=== PATIENT | female | born 1950 | race Caucasian/White ===

== ENCOUNTER → 2017-03-13 | Outpatient (CLI) | payer OTHER ==
[~2017-03-13] MED LIST: ALIVE VITAMIN PO; AMITRIPTYLINE H10 M3 PO; ATORVASTATIN CA40 MG PO; CALCIUM 600 +1 EACH PO; CALICUM 500+D1 EACH PO; CELEBREX100 MG/1 C PO; CELEXA40 MG PO; CIPRO250 MG PO; CLARITIN10 MG PO; COLACE100 MG PO; COUMADIN 2 MG TA2 M1 PO; COUMADIN 5 MG TA5 M1 PO; COUMADIN7.5 MG PO; CYMBALTA30 MG PO; CYMBALTA60 MG PO; DOMPERIDONE PO; ENOXAPARIN40 MG/0.1 SUBQ; ERYTHROMYCIN250 MG PO; FLEXERIL PO; HCTZ PO; HYDROCHLOROTHIA25 M1 PO; HYDROCHLOROTHIA25 M2 PO; HYDROCODON-ACE1 EAC7 PO; HYDROCODONE-AP1 EA15 PO; HYDROCODONE-AP1 EAC6 PO; LEVOTHYROXIN0.125 M1 PO; LEVOTHYROXIN0.137 M1 PO; LISINOPRIL10 MG PO; LISINOPRIL20 MG PO; MOM PO; MULTIVITAMIN W1 EACH PO; NEURONTIN 300300 M1 PO; NEURONTIN600 MG PO; NORCO 5-325 TA1 EACH PO; OCUVITE TABLET1 EAC1 PO; PAXIL 20 MG TAB20 M1 PO; PERCOCET PO; PHENERGAN25 MG RE; POTASSIUM20 PO; PREDNISONE 20 M20 MG PO; PRILOSEC 20 MG20 MG PO; PRILOSEC40 MG PO; PRINZIDE 20-251 EACH PO; PROTONIX40 M1 PO; PROZAC20 MG PO; RECLAST 55 MG/100 M IV; REQUIP 1 MG TABL1 M1 PO; REQUIP2 MG PO; ROBAXIN 750 MG750 M1 PO; ROPINIROLE HCL2 M1 PO; ROXICODONE5 MG PO; SIMETHICON CHEW80 M1 PO; SYNTHROID125 MCG PO; SYNTHROID150 MCG PO; VAGIFEM25 MCG VG; VIACTIV MULTI-1 EACH PO; VICODIN 5-5001 EACH PO; VITAMIN D2000 UNIT PO; WELLBUTRIN XL150 MG PO; ZANTAC 150MG T150 MG PO; ZOCOR 20 MG TAB20 MG PO; ZOFRAN ODT4 MG PO; ZOFRAN4 MG PO
[2017-03-13 13:37] LABS: ABSOLUTE BASOPHILS 0.1 thou/uL (0.0-0.2); ABSOLUTE EOSINOPHILS 0.1 thou/uL (0.0-0.7); ABSOLUTE LYMPHOCYTES 1.6 thou/uL (0.8-5.3); ABSOLUTE MONOCYTES 0.7 thou/uL (0.0-1.2); BASOPHILS 2.4 %; EOSINOPHILS 1.9 %; HEMATOCRIT 42.5 % (37.0-47.0); HEMOGLOBIN 14.1 gm/dL (12.0-15.0); LYMPHOCYTES 36.2 %; MCH 29.8 pg (26.0-34.0); MCHC 33.1 g/dL (28.0-37.0); MCV 89.9 fL (80.0-100.0); MONOCYTES 15.3 %; MPV 7.3 fl. (7.2-11.1); NUCLEATED RBCS 0 /100WBC; PLATELET COUNT* 280 thou/uL (150-400); POLYS 44.2 %; RBC 4.73 mil/uL (4.20-5.00); RDW-CV 14.7 % (10.5-14.5); WBC 4.5 thou/uL (4.0-11.0)
[2017-03-13 13:45] LABS: ANION GAP 10 mmol/L (7-16); BUN 12 mg/dL (7-18); CALCIUM 9.1 mg/dL (8.5-10.1); CHLORIDE 103 mmol/L (98-107); CO2 29 mmol/L (21-32); CREATININE 1.1 mg/dL (0.6-1.3); GLUCOSE 119 mg/dL (70-99); SODIUM 142 mmol/L (136-145)
[2017-03-13 13:49] LABS: ALBUMIN 3.9 g/dL (3.4-5.0); ALKALINE PHOSPHATASE 83 U/L (46-116); CHOLESTEROL 481 mg/dL (<200); HDL CHOLESTEROL 66 mg/dL (>40); SGOT 46 U/L (15-37); SGPT 43 U/L (30-65); TC:HDL 7.3 Ratio (Not establshd); TOTAL BILIRUBIN 0.2 mg/dL (<0.1-1.0); TOTAL PROTEIN 7.8 g/dL (6.4-8.2); TRIGLYCERIDE 472 mg/dL (<150); VLDL 94 mg/dL (<40)
[2017-03-13 13:50] LABS: LDL CHOLESTEROL ND mg/dL (<100); SERUM ASSESSMENT Slight Lipemia
== END ==
LOC: M.LAB 13:00 → M.CT 13:30
PROVIDERS: Family Medicine
DX: N28.89 Other specified disorders of kidney and ureter (principal); J84.10 Pulmonary fibrosis, unspecified; M43.27 Fusion of spine, lumbosacral region; Z90.49 Acquired absence of other specified parts of digestive tract

== ENCOUNTER 2017-06-02 11:59 | Emergency (ER) | payer OTHER ==
[~2017-06-02] VITALS: Ht 165.1 cm; Wt 72.6 kg
[~2017-06-02 11:59] MED LIST changes: -AMITRIPTYLINE H10 M3 PO; -COUMADIN 2 MG TA2 M1 PO; -PREDNISONE 20 M20 MG PO; -PROZAC20 MG PO; -ROPINIROLE HCL2 M1 PO; -SYNTHROID150 MCG PO; -VITAMIN D2000 UNIT PO; -WELLBUTRIN XL150 MG PO
[2017-06-02 12:26] LABS: URINE BILIRUBIN NEGATIVE (Negative); URINE BLOOD NEGATIVE (Negative); URINE CLARITY CLEAR; URINE COLOR YELLOW; URINE GLUCOSE-RANDOM NEGATIVE (Negative); URINE KETONES NEGATIVE (Negative); URINE LEUKOCYTES-REFLEX NEGATIVE (Negative); URINE NITRITE-REFLEX NEGATIVE (Negative); URINE PROTEIN NEGATIVE (Negative); URINE SPECIFIC GRAVITY <= 1.005 (1.005-1.030); URINE UROBILINOGEN 0.2 E.U./dl (0.2-1.0)
[2017-06-02] MEDS ORDERED: PROZAC20 MG PO (12:32)
[2017-06-02] MEDS ORDERED: LISINOPRIL20 MG PO (12:32)
[2017-06-02] MEDS ORDERED: SYNTHROID150 MCG PO (12:32)
[2017-06-02] MEDS ORDERED: NEURONTIN600 MG PO (12:33)
[2017-06-02] MEDS ORDERED: COUMADIN 5 MG TA5 M1 PO (12:33)
[2017-06-02] MEDS ORDERED: COUMADIN 2 MG TA2 M1 PO (12:33)
[2017-06-02] MEDS ORDERED: VITAMIN D2000 UNIT PO (12:34)
[2017-06-02] MEDS ORDERED: REQUIP2 MG PO (12:34)
[2017-06-02 13:19] LABS: ABSOLUTE BASOPHILS 0.1 thou/uL (0.0-0.2); ABSOLUTE EOSINOPHILS 0.2 thou/uL (0.0-0.7); ABSOLUTE LYMPHOCYTES 1.6 thou/uL (0.8-5.3); ABSOLUTE MONOCYTES 0.7 thou/uL (0.0-1.2); ABSOLUTE NEUTROPHILS 4.1 thou/uL (1.6-8.1); EOSINOPHILS 2.5 %; HEMATOCRIT 40.1 % (37.0-47.0); HEMOGLOBIN 13.4 gm/dL (12.0-15.0); LYMPHOCYTES 23.8 %; MCH 30.3 pg (26.0-34.0); MCHC 33.4 g/dL (28.0-37.0); MCV 90.6 fL (80.0-100.0); MPV 7.6 fl. (7.2-11.1); NUCLEATED RBCS 0 /100WBC; PLATELET COUNT* 284 thou/uL (150-400); POLYS 61.7 %; RBC 4.42 mil/uL (4.20-5.00); RDW-CV 14.5 % (10.5-14.5); WBC 6.7 thou/uL (4.0-11.0)
[2017-06-02 13:26] LABS: CALCIUM 8.8 mg/dL (8.5-10.1); CREATININE 0.8 mg/dL (0.6-1.3); POTASSIUM 4.2 mmol/L (3.5-5.1)
[2017-06-02 13:31] LABS: ALBUMIN 3.6 g/dL (3.4-5.0); TOTAL BILIRUBIN 0.1 mg/dL (<0.1-1.0)
[2017-06-02] MEDS ORDERED: PERCOCET PO (15:19)
[2017-06-02 16:12] VITALS: BP 122/80
== END 2017-06-02 16:20 | disposition home or self-care (01) ==
LOC: M.ERS 11:59
PROVIDERS: Physician Assistant
DX: M54.5 Low back pain (principal); M54.6 Pain in thoracic spine; R10.12 Left upper quadrant pain; I10 Essential (primary) hypertension; G25.81 Restless legs syndrome; E03.9 Hypothyroidism, unspecified; K21.9 Gastro-esophageal reflux disease without esophagitis; G89.29 Other chronic pain; F17.200 Nicotine dependence, unspecified, uncomplicated; Z86.711 Personal history of pulmonary embolism; Z90.49 Acquired absence of other specified parts of digestive tract; Z90.710 Acquired absence of both cervix and uterus; Z96.653 Presence of artificial knee joint, bilateral; Z86.718 Personal history of other venous thrombosis and embolism; Z88.0 Allergy status to penicillin

== ENCOUNTER 2017-08-17 15:53 | Inpatient (IN) | payer OTHER ==
[~2017-08-17] VITALS: Ht 182.9 cm; Wt 70.3 kg
[~2017-08-17 15:53] MED LIST changes: +COUMADIN 2 MG TA2 M1 PO; +PROZAC20 MG PO; +SYNTHROID150 MCG PO; +VITAMIN D2000 UNIT PO
[2017-08-17 15:57] VITALS: BP 166/81
[2017-08-17 16:21] LABS: ABSOLUTE BASOPHILS 0.1 thou/uL (0.0-0.2); ABSOLUTE EOSINOPHILS 0.1 thou/uL (0.0-0.7); ABSOLUTE LYMPHOCYTES 1.8 thou/uL (0.8-5.3); ABSOLUTE MONOCYTES 0.7 thou/uL (0.0-1.2); ABSOLUTE NEUTROPHILS 5.5 thou/uL (1.6-8.1); EOSINOPHILS 1.1 %; HEMATOCRIT 42.5 % (37.0-47.0); HEMOGLOBIN 14.2 gm/dL (12.0-15.0); LYMPHOCYTES 22.4 %; MCH 29.9 pg (26.0-34.0); MCHC 33.4 g/dL (28.0-37.0); MCV 89.6 fL (80.0-100.0); MPV 7.7 fl. (7.2-11.1); NUCLEATED RBCS 0 /100WBC; PLATELET COUNT* 336 thou/uL (150-400); POLYS 66.5 %; RBC 4.74 mil/uL (4.20-5.00); WBC 8.2 thou/uL (4.0-11.0)
[2017-08-17 16:26] LABS: INR 1.8; PROTIME 17.3 Seconds (9.20-11.50)
[2017-08-17 16:27] LABS: ANION GAP 11 mmol/L (7-16); BUN 16 mg/dL (7-18); CALCIUM 9.1 mg/dL (8.5-10.1); CHLORIDE 107 mmol/L (98-107); CO2 24 mmol/L (21-32); CREATININE 0.8 mg/dL (0.6-1.3); GLUCOSE 106 mg/dL (70-99); POTASSIUM 3.8 mmol/L (3.5-5.1); SODIUM 142 mmol/L (136-145)
[2017-08-17 16:37] LABS: ALBUMIN 3.9 g/dL (3.4-5.0); ALKALINE PHOSPHATASE 77 U/L (46-116); LIPASE 226 U/L (73-393); MAGNESIUM 2.4 mg/dL (1.8-2.4); NT-PRO BRAIN NAT PEPTIDE 199 pg/mL (<300); SGOT 27 U/L (15-37); SGPT 31 U/L (30-65); TOTAL BILIRUBIN 0.3 mg/dL (<0.1-1.0); TOTAL PROTEIN 7.8 g/dL (6.4-8.2); TROPONIN-I LEVEL <0.06 ng/mL (<0.06)
[2017-08-17 20:20] VITALS: BP 168/87
[2017-08-17 20:30] VITALS: BP 159/68
[2017-08-17] MEDS ORDERED: ROPINIROLE HCL2 M1 PO (22:07)
[2017-08-17] MEDS ORDERED: WELLBUTRIN XL150 MG PO (22:09)
[2017-08-17] MEDS ORDERED: CYMBALTA60 MG PO (22:09)
[2017-08-18] VITALS: BP 150/71
[2017-08-18 04:00] VITALS: BP 119/58
[2017-08-18 04:40] LABS: INR 1.7; PROTIME 16.2 Seconds (9.20-11.50)
[2017-08-18 04:43] LABS: HEMATOCRIT 39.5 % (37.0-47.0); HEMOGLOBIN 13.1 gm/dL (12.0-15.0); MCH 29.9 pg (26.0-34.0); MCHC 33.1 g/dL (28.0-37.0); MCV 90.3 fL (80.0-100.0); MPV 8.2 fl. (7.2-11.1); RBC 4.37 mil/uL (4.20-5.00); RDW-CV 15.2 % (10.5-14.5); WBC 6.9 thou/uL (4.0-11.0)
[2017-08-18 04:58] LABS: ALBUMIN 3.4 g/dL (3.4-5.0); ALKALINE PHOSPHATASE 83 U/L (46-116); ANION GAP 8 mmol/L (7-16); BUN 12 mg/dL (7-18); CALCIUM 8.4 mg/dL (8.5-10.1); CHLORIDE 106 mmol/L (98-107); CO2 27 mmol/L (21-32); CREATININE 0.7 mg/dL (0.6-1.3); GLUCOSE 109 mg/dL (70-99); MAGNESIUM 2.4 mg/dL (1.8-2.4); POTASSIUM 4.3 mmol/L (3.5-5.1); SGOT 167 U/L (15-37); SGPT 133 U/L (30-65); SODIUM 141 mmol/L (136-145); TOTAL BILIRUBIN 0.3 mg/dL (<0.1-1.0); TOTAL PROTEIN 6.5 g/dL (6.4-8.2); TROPONIN-I LEVEL <0.06 ng/mL (<0.06)
[2017-08-18 07:52] VITALS: BP 111/59
[2017-08-18 11:50] VITALS: BP 100/65
--- NOTE | 2017-08-18 12:00 | EKG ---
[place] [address] ELECTROCARDIOGRAM REPORT Name: PEPPER PAIZ Room: [address] IN R.#: [id number] Admission: 08/17/17 Attend Phys: Alicia Daniel MD Discharge: Date of : 48 Report #: [id number] THIS REPORT FOR: //name// [facility] ED Test Date: 2017-08-17 Test Time: 15:58:49 Pat Name: PEPPER PAIZ Department: Room: Gender: F Clay Miner: : 1950 Requested By: Chidi Ulloa Order Number: [id number] MD: Sukhi Alvarez Measurements Intervals [place] Rate: 67 P: 57 GA: 131 QRS: 34 QRSD: 144 T: 67 QT: 454 QTc: 480 Interpretive Statements Sinus rhythm Left bundle branch block Baseline wander in lead(s) III Compared to ECG 10/10/2013 14:36:33 No significant changes Electronically Signed On 08-18-2017 12:00:23 CDT by Sukhi Alvarez [email or web address] <ELECTRONICALLY SIGNED> By: Sukhi Alvarez MD, FAC 08/18/17 Formerly [facility] 1558 1558 Sukhi Alvarez MD, [facility] /EPI
--- NOTE | 2017-08-18 13:07 | 2DMMODE ---
[place] [address] 2 D/M-MODE ECHOCARDIOGRAM Name: PEPPER PAIZ Room: [address] IN .R.#: [id number] Admission: 08/17/17 Attend Phys: Alicia Daniel, Discharge: Date of : 48 Date of Service: 08/18/17 1307 Report #: [id number] THIS REPORT FOR: //name// APPROVED REPORT Study performed: 08/18/2017 09:10:05 EXAM: Comprehensive 2D, Doppler, and color-flow Echocardiogram Patient Location: In-Patient BSA: 1.77 HR: 50 bpm BP: 111/59 mmHg Other Information Study Quality: Fair Indications Chest Pain 2D Dimensions LVEF(%): 37.62 (>50%) IVSd: 12.40 (7-11mm) LVOT Diam: 19.70 (18-24mm) LVDd: 42.28 mm PWd: 11.03 (7-11mm) Ascending Ao: 22.63 (22-36mm) LVDs: 34.69 (25-40mm) Aortic Root: 25.74 mm Taylor's LVEF: 37.62 % Volumes Left Atrial Volume (Systole) LA ESV Index: 21.40 mL/m2 Aortic Valve AoV Peak Andrea.: 1.49 m/s AO Peak Gr.: 8.82 mmHg LVOT Max P.17 mmHg AO Mean Gr.: 4.82 mmHg LVOT Mean P.49 mmHg LVOT Max V: 1.14 m/s AO V2 VTI: 28.97 cm LVOT Mean V: 0.91 m/s MACIEJ (VTI): 2.26 cm2 LVOT V1 VTI: 21.46 cm Mitral Valve E/A Ratio: 0.97 MV Decel. Time: 205.12 ms MV E Max Andrea.: 0.75 m/[place] [address] 2 D/M-MODE ECHOCARDIOGRAM Name: PEPPER PAIZ Room: [address] IN .R.#: [id number] Admission: 08/17/17 Attend Phys: Alicai Daniel, Discharge: Date of : 48 Date of Service: 08/18/17 1307 Report #: [id number] MV PHT: 59.49 ms MVA (PHT): 3.70 cm2 TDI E/Lateral E': 6.82 E/Medial E': 7.50 Medial E' Andrea.: 0.10 m/s Lateral E' Andrea.: 0.11 m/s Pulmonary Valve PV Peak Andrea.: 1.08 m/s PV Peak Gr.: 4.68 mmHg Tricuspid Valve RAP Estimate: 5.00 mmHg TR Peak Gr.: 10.10 mmHg RVSP: 15.10 mmHg PA Pressure: 15.10 mmHg Left Ventricle The left ventricle is normal size. There is global hypokinesis of the left ventricle. Mild concentric left ventricular hypertrophy. Left ventricular systolic function is mildly decreased. LVEF is 40-45%. Right Ventricle The right ventricle is normal size. The right ventricular systolic function is normal. Atria The left atrium size is normal. The right atrium size is normal. Aortic Valve The aortic valve is normal in structure. No aortic regurgitation is present. There is no aortic valvular stenosis. Mitral Valve The mitral valve is normal in structure. Trace mitral regurgitation. No evidence of mitral valve stenosis. Tricuspid Valve The tricuspid valve is normal in structure. Trace tricuspid regurgitation. Pulmonic Valve Pulmonic valve is not well visualized. There is no pulmonic [place] [address] 2 D/M-MODE ECHOCARDIOGRAM Name: PEPPER PAIZ Room: [address] IN [facility]#: [id number] Admission: 08/17/17 Attend Phys: Alicia Daniel, Discharge: Date of : 48 Date of Service: 08/18/17 1307 Report #: [id number] Great Vessels The aortic root is normal in size. IVC is not well visualized. Pericardium There is no pericardial effusion. <Conclusion> LVEF is 40-45%. There is global hypokinesis of the left ventricle. <ELECTRONICALLY SIGNED> By: Sukhi Alvarez MD, [facility] 08/18/17 1307 06 06 Sukhi Alvarez MD, FAC /INF
[2017-08-18 15:07] LABS: HEPATITIS B SURFACE AG Negative (Negative)
[2017-08-18 16:15] VITALS: BP 120/74
[2017-08-18 20:00] VITALS: BP 113/55
[2017-08-19] VITALS: BP 110/60
[2017-08-19 01:22] LABS: HEMATOCRIT 40.7 % (37.0-47.0); HEMOGLOBIN 13.3 gm/dL (12.0-15.0); MCHC 32.7 g/dL (28.0-37.0); MCV 91.9 fL (80.0-100.0); MPV 7.8 fl. (7.2-11.1); RBC 4.43 mil/uL (4.20-5.00); WBC 7.5 thou/uL (4.0-11.0)
[2017-08-19 01:45] LABS: INR 1.5; PROTIME 14.7 Seconds (9.20-11.50)
[2017-08-19 02:00] LABS: ALBUMIN 3.4 g/dL (3.4-5.0); ALKALINE PHOSPHATASE 87 U/L (46-116); ANION GAP 9 mmol/L (7-16); BUN 14 mg/dL (7-18); CALCIUM 8.7 mg/dL (8.5-10.1); CHLORIDE 106 mmol/L (98-107); CO2 28 mmol/L (21-32); GLUCOSE 122 mg/dL (70-99); MAGNESIUM 2.4 mg/dL (1.8-2.4); POTASSIUM 4.2 mmol/L (3.5-5.1); SGOT 66 U/L (15-37); SGPT 110 U/L (30-65); SODIUM 143 mmol/L (136-145); TOTAL BILIRUBIN 0.2 mg/dL (<0.1-1.0); TOTAL PROTEIN 6.9 g/dL (6.4-8.2); TROPONIN-I LEVEL <0.06 ng/mL (<0.06)
[2017-08-19 04:00] VITALS: BP 120/71
[2017-08-19 07:45] VITALS: BP 138/72
[2017-08-19 16:00] VITALS: BP 99/54
[2017-08-19 20:30] VITALS: BP 89/46
[2017-08-19 23:51] VITALS: BP 129/57
[2017-08-20 01:38] LABS: HEMATOCRIT 37.3 % (37.0-47.0); HEMOGLOBIN 12.3 gm/dL (12.0-15.0); MCHC 33.1 g/dL (28.0-37.0); MCV 90.8 fL (80.0-100.0); RBC 4.11 mil/uL (4.20-5.00); RDW-CV 15.4 % (10.5-14.5); WBC 6.7 thou/uL (4.0-11.0)
[2017-08-20 01:42] LABS: INR 1.5; PROTIME 14.1 Seconds (9.20-11.50)
[2017-08-20 02:41] LABS: CREATININE 0.8 mg/dL (0.6-1.3); POTASSIUM 3.8 mmol/L (3.5-5.1)
[2017-08-20 04:30] VITALS: BP 138/74
[2017-08-20 08:30] VITALS: BP 151/70
[2017-08-20 16:00] VITALS: BP 144/66
[2017-08-20 21:00] VITALS: BP 132/57
[2017-08-21 03:49] LABS: INR 1.6; PROTIME 15.2 Seconds (9.20-11.50)
[2017-08-21 08:00] VITALS: BP 145/71
[2017-08-21] MEDS ORDERED: AMITRIPTYLINE H10 M3 PO (08:27)
[2017-08-21] MEDS ORDERED: PREDNISONE 20 M20 MG PO (08:27)
[2017-08-21 14:23] VITALS: BP 145/71
[2017-08-21 14:56] VITALS: BP 145/71
[2017-08-21 16:00] VITALS: BP 150/68
[2017-08-21 17:14] VITALS: BP 145/71
--- NOTE | 2017-08-21 17:42 | CARDNUC ---
[place] [address] CARDIAC NUCLEAR IMAGING REPORT Name: PEPPER PAIZ Room: [address] IN [facility]#: [id number] Admission: 08/17/17 Attend Phys: Alicia Daniel, Discharge: Date of : 48 Date of Service: 08/21/17 1742 Report #: [id number] THIS REPORT FOR: //name// APPROVED REPORT Study performed: 08/19/2017 11:32:00 Indication: Chest pain Patient Location: In-Patient Room #: 113 Stress Tech: Misty Romano Stress Nurse: Kassandra Matthew RN Ht: 5 ft 5 in Wt: 155 lbs BSA: 1.77 m2 BMI: 25.79 Medical History Medical History: CAD s/p [place] Medications: warfarin, lisinopril, asa Allergies: penicillin Cardiac Risk Factors: Age, Current Smoker, HTN Previous Cardiac Procedures: PCI Exercise History: Sedentary Meds Held (24 hrs): - Resting Data Rest SPECT myocardial perfusion imaging was performed in supine position 30 minutes following the intravenous injection of 8.0 mCi of Tc-99m Sestamibi. Time of rest injection: 08:20 The images were gated to evaluate regional wall motion and calculate left ventricular ejection fraction. Administration Route: IV Administration Site: Left AC Pharmacologic Stress Pharmacologic stress test was performed by injecting Regadenoson 0.4 mg IV push over 10-15 seconds immediately followed by the intravenous injection of 28.0 mCi of Tc-99m Sestamibi. Time of stress injection: 11:00 Administration Route: IV Administration Site: Left AC Heart Rate at time of stress injection: 110 bpm. Gated Stress SPECT was performed 40 minutes [place] [address] CARDIAC NUCLEAR IMAGING REPORT Name: PEPPER PAIZ Room: [address] IN [facility].#: [id number] Admission: 08/17/17 Attend Phys: Alicia Daniel, Discharge: Date of : 48 Date of Service: 08/21/17 1742 Report #: [id number] The images were gated to evaluate regional wall motion and calculate left ventricular ejection fraction. Prone imaging was performed. Stress Test Details Stress Test: Pharmacologic stress testing performed using 0.4 mg of regadenoson per 5 mL given IV over 10 seconds. Reason for pharmacologic stress test: physical limitation. HR Resting HR: 62 bpm Max Heart Rate (APMHR): 153 bpm Max HR Achieved: 110 bpm Target HR (85% APMHR): 130 bpm % of APMHR: 71 Recovery HR: 85 bpm BP Resting BP: 149/87 mmHg Max BP: 140/82 mmHg ECG Resting ECG: Sinus Rhythm, LBBB Stress ECG: Sinus Rhythm, LBBB ST Change: None Arrhythmia: None Recovery ECG: Sinus Rhythm, LBBB Recovery ST Change: None Recovery Arrhythmia: None Clinical Reason for Termination: Completed protocol Stress Symptoms: Chest pain Exercise duration: 0 min sec Exercise capacity: 1.0 METs The patient had mild chest discomfort with Lexiscan infusion felt to be medication effect in light of myocardial perfusion imaging findings. Nurse Comments Patient reported chest tightness post lexiscan, rated 8, resolved in recovery. Stress ECG Conclusion Baseline 12-lead elect cardiac exam shows sinus rhythm with left bundle-branch block. EKGs obtained during and post Lexiscan infusion show sinus rhythm with left bundle-branch block. No acute changes were noted. There were no stress[place] [address] CARDIAC NUCLEAR IMAGING REPORT Name: PEPPER PAIZ Room: [address]#: [id number] Admission: 08/17/17 Attend Phys: Alicia Daniel, Discharge: Date of : 48 Date of Service: 08/21/17 1742 Report #: [id number] Study Quality Study: Good Artifact: Mild Breast artifact Study Data At rest, the left ventricular ejection fraction was 53%.. Post stress, the left ventricular ejection was E3%.. TID = 0.89. Perfusion Myocardial perfusion images obtained at rest show a moderate region of mild intensity defect involving the mid to apical anterior wall. No other defects were identified. Myocardial perfusion images obtained post Lexiscan stress show a mid to distal anterior wall defect of moderate intensity that is smaller than resting images. No other defects were identified. Wall Motion There is septal wall motion abnormality of uncertain significance. Of note the anterior wall exhibits normal motion. Nuclear Conclusion ECG Findings: non-diagnostic Clinical Findings: non-diagnostic Nuclear Findings: negative for ischemia Exercise Capacity: not assessed Left Ventricular Function: preserved Risk Study: low Myocardial perfusion images show a defect of the anterior wall on both rest and stress images with normal wall motion suggesting breast attenuation artifact. Overall left ventricular systolic function appears normal. This is not a high risk study. <Conclusion> Baseline 12-lead elect cardiac exam shows sinus rhythm with left bundle-branch block. EKGs obtained during and post Lexiscan infusion show sinus rhythm with left bundle-branch block. No acute changes were noted. There were no stress-induced arrhythmias. <ELECTRONICALLY SIGNED> By: Steve Monzon MD, FACC 08/21/171741 41 41 Steve Monzon MD, FACC /INF
[2017-08-21 18:38] VITALS: BP 145/71
--- NOTE | 2017-08-23 14:13 | CON ---
[address] [address] CONSULTATION Name: PEPPER PAIZ Room: [address] IN ..#: [id number] Admission: 08/17/17 Attend Phys: Alicia Daniel MD Discharge: 08/21/17 Date of : 48 Report #: [id number] THIS REPORT FOR: //name// CC: Lang Daniel DATE OF SERVICE: 08/18/2017 CARDIOLOGY CONSULTATION HISTORY OF PRESENT ILLNESS: The patient is a 66-year-old single white female who I was asked to see in the hospital today after she complained of chest pain. The patient has an extensive past medical history. She apparently had a heart catheterization by Dr. Baptiste years ago here in [place] that showed only 40% blockage in a small artery and she was not stented. She apparently had another heart catheterization while she was in [place] that showed no significant coronary artery disease. She has a known bundle-branch block. She previously was followed by a doctor, ____, who is a header setup operator at [facility] in [place]. She has not had a recent stress test. She actually saw Dr. Echevarria here at [facility] in 2008 complaining of chest pain. Dr. Echevarria felt that her pain was suggestive of angina, so she actually underwent another heart catheterization here at [facility] [address] Munoz from the right groin. She was found to have ejection fraction of 60%. The ostium of the LAD apparently had a 40% stenosis. It was recommended that she be treated medically. She apparently did have FFR performed of the LAD. Since that time, she has had several hospitalizations. Her last hospitalization was shoulder surgery at [facility] in [place] this past year. Recently, she has been under a lot of stress. She actually came to the emergency room in May, complaining of low back pain. She then came to the emergency room yesterday complaining of some chest pain that radiated into her back. It is not necessarily related to activity. She also has some pain in her left shoulder. She has had no appetite with coughing. She has been short of breath. She notes her heart racing and apparently did have a brief loss of conscious recently. She came to the Emergency Room yesterday and was admitted there. PAST MEDICAL HISTORY: Significant for back surgery, bilateral knee replacement, cholecystectomy, hysterectomy, and hypertension. She has a back stimulator in place. She [facility] [place]. MEDICATIONS: Consist of Cymbalta, Neurontin, Synthroid, lisinopril, and warfarin. ALLERGIES: She has allergy to PENICILLIN. She does have history of hypertension, but [place] [address] CONSULTATION Name: PEPPER PAIZ Room: [address] IN ..#: [id number] Admission: 08/17/17 Attend Phys: Alicia Daniel MD Discharge: 08/21/17 Date of : 48 Report #: [id number] FAMILY HISTORY: Her father had heart attack. SOCIAL HISTORY: , lives in [place], [place]. She used to be a unit manager convenience stores. She is on disability. She lives with her mom who recently . She smokes less than half pack of cigarettes a day. No alcohol abuse. REVIEW OF SYSTEMS: She has had no history of stroke. She has had a peptic ulcer in the past. She has chronic kidney disease. She has skin cancer removed in the past. PHYSICAL EXAMINATION: GENERAL: Revealed middle-aged female lying in bed. She appeared in no distress. VITAL SIGNS: She had blood pressure of 140/60, pulse is 70. She is afebrile. HEENT: She was anicteric, conjunctiva pink. Mucous members moist. NECK: Veins nondistended. No carotid bruits. Neck is supple. CHEST: Clear to auscultation. CARDIAC: Regular rate and rhythm. ABDOMEN: Soft, nontender, no masses were palpated. EXTREMITIES: Had no edema. Dorsalis pedis pulse 1+ bilaterally. SKIN: Cool and dry. NEUROLOGIC: Nonfocal. PSYCHIATRIC: Mood is somewhat depressed. DIAGNOSTIC DATA: ECG shows a sinus rhythm with left bundle-branch block that is unchanged from previous ECGs. IMAGING DATA: She had chest x-ray on admission that showed normal heart size, clear lung moreno; CT scan of the chest with contrast on admission that showed no evidence of pulmonary embolus or aortic dissection. Fatty liver was noted. She had previous lab work that included sodium 141, potassium 4.3, creatinine 0.7, and glucose 109. Troponin 0.06. In March, her cholesterol was 481, triglycerides 462, HDL 66. LDL could not be calculated. TSH 3.1. Her INR is 1.7. White blood cell count 6.9, hemoglobin is 13.1. IMPRESSION AND RECOMMENDATIONS: 1. Chest pain. Atypical for angina. Previous heart catheterization showed minimal coronary artery disease. Suspect her chest pain is noncardiac. I would recommend a dobutamine stress echo. 2. Hypertension. The patient is on an MARLON inhibitor. 3. Hyperlipidemia. The patient should be on at least a statin drug. If her LDL remains greater than 160 despite a statin drug, I would consider PCSK9 inhibitor. 4. Use of [place] [address] CONSULTATION Name: PEPPER PAIZ Room: [address] IN ..#: [id number] Admission: 08/17/17 Attend Phys: Alicia Daniel MD Discharge: 08/21/17 Date of : 48 Report #: [id number] 5. Chronic back pain. The patient has a nerve stimulator in place. 6. Tobacco abuse. <ELECTRONICALLY SIGNED> By: Sukhi Alvarez MD, FACC 08/23/17 1413 0848 [id number] Alvarez MD, FACC /nt
== END 2017-08-21 18:39 | disposition home or self-care (01) | DRG 313 ==
LOC: M.ERS 15:53 → M.2W 17:24 → M.ORTHSURG 17:24 → M.TBA-ER 17:24 → M.2W 21:01 → M.ORTHSURG 08-19 14:47
PROVIDERS: Emergency Medicine Emergency Medical Services; ADMIT Internal Medicine
DX: R07.89 Other chest pain (principal); I50.22 Chronic systolic (congestive) heart failure; D68.69 Other thrombophilia; Z96.653 Presence of artificial knee joint, bilateral; M54.9 Dorsalgia, unspecified; E78.5 Hyperlipidemia, unspecified; E03.9 Hypothyroidism, unspecified; K21.9 Gastro-esophageal reflux disease without esophagitis; I45.10 Unspecified right bundle-branch block; K31.84 Gastroparesis; G43.909 Migraine, unspecified, not intractable, without status migrainosus; G25.81 Restless legs syndrome; F32.9 Major depressive disorder, single episode, unspecified; M54.30 Sciatica, unspecified side; G89.29 Other chronic pain; I11.0 Hypertensive heart disease with heart failure; Z79.01 Long term (current) use of anticoagulants; Z90.49 Acquired absence of other specified parts of digestive tract; Z90.710 Acquired absence of both cervix and uterus; Z98.1 Arthrodesis status; Z86.711 Personal history of pulmonary embolism; I25.2 Old myocardial infarction; Z86.718 Personal history of other venous thrombosis and embolism; Z88.0 Allergy status to penicillin

== ENCOUNTER → 2017-10-27 | Outpatient (CLI) | payer OTHER ==
[~2017-10-27] MED LIST changes: +AMITRIPTYLINE H10 M3 PO; +PREDNISONE 20 M20 MG PO; +ROPINIROLE HCL2 M1 PO; +WELLBUTRIN XL150 MG PO
== END ==
LOC: M.CT 11:15
DX: M51.16 Intervertebral disc disorders with radiculopathy, lumbar region (principal); M41.86 Other forms of scoliosis, lumbar region; M43.27 Fusion of spine, lumbosacral region; I10 Essential (primary) hypertension; E03.9 Hypothyroidism, unspecified; E78.2 Mixed hyperlipidemia; M81.0 Age-related osteoporosis without current pathological fracture; K21.9 Gastro-esophageal reflux disease without esophagitis; Z79.01 Long term (current) use of anticoagulants

== ENCOUNTER 2018-02-12 14:45 | Inpatient (IN) | payer OTHER ==
[~2018-02-12] VITALS: Ht 165.1 cm; Wt 66.7 kg
[2018-02-12 14:50] VITALS: BP 194/91
[2018-02-12 15:38] LABS: ABSOLUTE BASOPHILS 0.1 thou/uL (0.0-0.2); ABSOLUTE MONOCYTES 0.7 thou/uL (0.0-1.2); ABSOLUTE NEUTROPHILS 4.2 thou/uL (1.6-8.1); BASOPHILS 1.1 %; EOSINOPHILS 0.6 %; HEMATOCRIT 40.6 % (37.0-47.0); HEMOGLOBIN 13.5 gm/dL (12.0-15.0); LYMPHOCYTES 27.8 %; MCH 29.7 pg (26.0-34.0); MCHC 33.3 g/dL (28.0-37.0); MONOCYTES 10.1 %; NUCLEATED RBCS 0 /100WBC; PLATELET COUNT* 303 thou/uL (150-400); POLYS 60.4 %; RBC 4.56 mil/uL (4.20-5.00); RDW-CV 13.9 % (10.5-14.5)
[2018-02-12 15:44] LABS: ANION GAP 10 mmol/L (7-16); APTT 33.8 Seconds (25.0-31.3); BUN 12 mg/dL (7-18); CALCIUM 8.7 mg/dL (8.5-10.1); CHLORIDE 103 mmol/L (98-107); CO2 28 mmol/L (21-32); CREATININE 0.9 mg/dL (0.6-1.3); GLUCOSE 95 mg/dL (70-99); INR 1.5; POTASSIUM 3.4 mmol/L (3.5-5.1); SODIUM 141 mmol/L (136-145)
[2018-02-12 15:50] LABS: ALBUMIN 3.8 g/dL (3.4-5.0); ALKALINE PHOSPHATASE 81 U/L (46-116); LIPASE 203 U/L (73-393); SGOT 23 U/L (15-37); SGPT 29 U/L (30-65); TOTAL BILIRUBIN 0.3 mg/dL (<0.1-1.0); TOTAL PROTEIN 7.5 g/dL (6.4-8.2); TROPONIN-I LEVEL <0.06 ng/mL (<0.06)
[2018-02-12 16:33] LABS: INFLUENZA A ANTIGEN None Detected (None Detect); INFLUENZA B ANTIGEN None Detected (None Detect)
[2018-02-12 17:04] LABS: URINE BILIRUBIN NEGATIVE (Negative); URINE BLOOD NEGATIVE (Negative); URINE CLARITY CLEAR; URINE COLOR YELLOW; URINE GLUCOSE-RANDOM NEGATIVE (Negative); URINE KETONES NEGATIVE (Negative); URINE LEUKOCYTES-REFLEX NEGATIVE (Negative); URINE NITRITE-REFLEX NEGATIVE (Negative); URINE PROTEIN NEGATIVE (Negative); URINE UROBILINOGEN 0.2 E.U./dl (0.2-1.0)
[2018-02-12 17:27] LABS: AMP/METHAMP Negative (Negative); BARBITURATES Negative (Negative); BENZODIAZEPINES Negative (Negative); COCAINE Negative (Negative); METHADONE Negative (Negative); OPIATES POSITIVE (Negative); PCP Negative (Negative); THC Negative (Negative)
--- NOTE | 2018-02-12 17:40 | EKG ---
[place] [address] ELECTROCARDIOGRAM REPORT Name: PEPPER PAIZ Room: [facility]#: [id number] Admission: 02/12/18 Attend Phys: Discharge: Date of : 48 Report #: [id number] THIS REPORT FOR: //name// [facility] ED Test Date: 2018-02-12 Test Time: 14:51:40 Pat Name: PEPPER PAIZ Department: Room: Gender: F Slots Manager: Lu ROSS : 1950 Requested By: Harika Patel Order Number: [id number] MD: Sukhi Alvarez Measurements Intervals [place] Rate: 70 P: 72 GA: 133 QRS: 46 QRSD: 146 T: 68 QT: 484 QTc: 523 Interpretive Statements Sinus rhythm Left bundle branch block Compared to ECG 08/17/2017 15:58:49 No significant changes Electronically Signed On 02-12-2018 17:40:34 JOB [employer] by Sukhi Alvarez [email or web address] <ELECTRONICALLY SIGNED> By: Sukhi Alvarez MD, [facility] 02/12/18 1740 1451 145 Sukhi Alvarez MD, FACC /EPI
[2018-02-12 19:48] VITALS: BP 132/64
[2018-02-12 20:10] VITALS: BP 151/77
[2018-02-13] VITALS: BP 134/62
[2018-02-13 04:00] VITALS: BP 112/54
[2018-02-13 05:07] LABS: HEMATOCRIT 38.4 % (37.0-47.0); HEMOGLOBIN 12.7 gm/dL (12.0-15.0); MCH 29.8 pg (26.0-34.0); MCHC 33.1 g/dL (28.0-37.0); MCV 90.3 fL (80.0-100.0); MPV 7.9 fl. (7.2-11.1); NUCLEATED RBCS 0 /100WBC; PLATELET COUNT* 278 thou/uL (150-400); RBC 4.25 mil/uL (4.20-5.00); RDW-CV 14.3 % (10.5-14.5); WBC 6.6 thou/uL (4.0-11.0)
[2018-02-13 05:14] LABS: CALCIUM 8.5 mg/dL (8.5-10.1); CREATININE 1.2 mg/dL (0.6-1.3); POTASSIUM 3.7 mmol/L (3.5-5.1)
[2018-02-13 05:17] LABS: INR 1.4; PROTIME 14.4 Seconds (9.20-11.50)
[2018-02-13 06:14] LABS: ABSOLUTE MONOCYTES 0.1 thou/uL (0.0-1.2); ABSOLUTE NEUTROPHILS 5.5 thou/uL (1.6-8.1); ANISOCYTOSIS 1+; PLATELET ESTIMATE ADEQUATE; POIKILOCYTOSIS 1+
[2018-02-13 08:00] VITALS: BP 138/78
--- NOTE | 2018-02-13 11:34 | EKG ---
[place] [address] ELECTROCARDIOGRAM REPORT Name: PEPPER PAIZ Room: [address] ADM IN M.R.#: [id number] Admission: 02/12/18 Attend Phys: Chuy Atkinson MD Discharge: Date of : 48 Report #: [id number] THIS REPORT FOR: //name// [facility] ED Test Date: 2018-02-12 Test Time: 16:23:43 Pat Name: PEPPER PAIZ Department: Room: [address] Gender: F Physical Director: : 1950 Requested By: Harika Patel Order Number: [id number] Reading MD: Sukhjinder Rivera Measurements Intervals [place] Rate: 84 P: 71 IA: 133 QRS: 41 QRSD: 140 T: 66 QT: 435 QTc: 515 Interpretive Statements Sinus rhythm Probable left atrial enlargement Left bundle branch block Compared to ECG 02/12/2018 14:51:40 No significant changes Electronically Signed On 02-13-2018 11:34:15 [employer]PERVIS[employer] by Sukhjinder Rivera [email or web address] <ELECTRONICALLY SIGNED> By: Sukhjinder Rivera MD, [facility] 02/13/18 1134 1623 1623 Sukhjinder Rivera MD, [facility] /EPI
[2018-02-13 12:00] VITALS: BP 139/64
[2018-02-13 16:00] VITALS: BP 134/63
[2018-02-13 20:00] VITALS: BP 136/69
[2018-02-14] VITALS: BP 135/65
[2018-02-14 04:00] VITALS: BP 116/71
[2018-02-14 05:15] LABS: INR 1.6; PROTIME 16.8 Seconds (9.20-11.50)
[2018-02-14 10:00] VITALS: BP 163/72
[2018-02-14 12:00] VITALS: BP 168/75
[2018-02-14 16:00] VITALS: BP 149/77
[2018-02-14 20:00] VITALS: BP 147/87
[2018-02-15] VITALS: BP 152/84
[2018-02-15 04:00] VITALS: BP 167/86
[2018-02-15 08:00] VITALS: BP 164/90
[2018-02-15] MEDS ORDERED: VENTOLIN HFA 1818 GM INH (09:48)
[2018-02-15] MEDS ORDERED: ZITHROMAX250 MG PO (09:48)
[2018-02-15] MEDS ORDERED: CEFDINIR300 MG PO (09:48)
[2018-02-15] MEDS ORDERED: PREDNISONE 10 M10 M1 PO (09:48)
[2018-02-15] MEDS ORDERED: BENZONATATE100 MG PO (09:48)
[2018-02-15] MEDS ORDERED: VANCOCIN 125 M125 M1 PO (09:48)
[2018-02-15 12:11] VITALS: BP 164/90
== END 2018-02-15 13:30 | disposition home or self-care (01) | DRG 205 ==
LOC: M.ERS 14:45 → M.TBA-ER 18:37 → M.2W 18:37 → M.TBA-ER 20:07 → M.2W 20:10
PROVIDERS: Physician Assistant; ADMIT Internal Medicine
DX: M94.0 Chondrocostal junction syndrome [Tietze] (principal); J96.00 Acute respiratory failure, unspecified whether with hypoxia or hypercapnia; Z96.653 Presence of artificial knee joint, bilateral; I10 Essential (primary) hypertension; G25.81 Restless legs syndrome; E03.9 Hypothyroidism, unspecified; K21.9 Gastro-esophageal reflux disease without esophagitis; I16.0 Hypertensive urgency; J42 Unspecified chronic bronchitis; F17.210 Nicotine dependence, cigarettes, uncomplicated; J20.9 Acute bronchitis, unspecified; F41.9 Anxiety disorder, unspecified; F32.9 Major depressive disorder, single episode, unspecified; Z98.1 Arthrodesis status; Z90.710 Acquired absence of both cervix and uterus; I25.2 Old myocardial infarction; Z86.711 Personal history of pulmonary embolism; Z86.718 Personal history of other venous thrombosis and embolism; Z90.49 Acquired absence of other specified parts of digestive tract; Z87.828 Personal history of other (healed) physical injury and trauma; Z79.01 Long term (current) use of anticoagulants; Z79.899 Other long term (current) drug therapy; Z88.0 Allergy status to penicillin

== ENCOUNTER 2018-03-02 10:33 | Inpatient (IN) | payer OTHER ==
[~2018-03-02] VITALS: Ht 165.1 cm; Wt 67.6 kg
--- NOTE | ~2018-03-02 | OP ---
[facility] [address] [place] [address] OPERATIVE REPORT Name: PEPPER PAIZ Room: [address] IN .R.#: [id number] Admission: 03/03/18 Attend Phys: Lu Gutierres Discharge: Date of : 48 Report #: [id number] THIS REPORT FOR: //name// CC: Aura Gorman SURGEON: Santiago Lobato MD PREOPERATIVE DIAGNOSIS: Bilateral flank pain with ureteral obstruction. POSTOPERATIVE DIAGNOSIS: Bilateral flank pain with ureteral obstruction. PROCEDURE: Panendoscopy and cystoscopy, bilateral retrograde pyelograms, bilateral ureteral stent placement. COMPLICATIONS: None. INDICATIONS: This is a 67-year-old white female with a history of having hematuria and when her INR was very elevated, she had some flank pain. CT scan showed hydronephrosis on the right hand side that was new, presumably from clot. She was having gross hematuria. It has improved some. She presents now for bilateral stent placement. She understands risks of bleeding, infection and other procedures. Her pain got markedly worse this morning. It was severe and writhing in pain and consistent with clot colic on the left hand side now. DESCRIPTION OF PROCEDURE: Informed consent was obtained. The patient was sterilely prepped and draped in dorsal lithotomy position and given preoperative antibiotics. Cystoscopy was carried out. There was minimal blood clot in the bladder. Bilateral retrograde pyelogram was performed showing the UPJ type obstruction on the right side. She also had a little bit on the left side of hangup of the mid to distal ureter. A bilateral 6 x 26 Contour stents were then placed showing good curl in the kidney and good curl in the bladder bilaterally. There was minimal bleeding at the end of the procedure. The patient tolerated this well and was taken to recovery room in good condition. Plan will be to leave the stent in for 5-7 days. By: 1306 1656Bmaria de jesus Lobato MD /nt
[~2018-03-02 10:33] MED LIST changes: +BENZONATATE100 MG PO; +CEFDINIR300 MG PO; +PREDNISONE 10 M10 M1 PO; +VANCOCIN 125 M125 M1 PO; +VENTOLIN HFA 1818 GM INH; +ZITHROMAX250 MG PO
[2018-03-02 10:54] VITALS: BP 134/72
[2018-03-02 11:23] LABS: ABSOLUTE BASOPHILS 0.1 thou/uL (0.0-0.2); ABSOLUTE EOSINOPHILS 0.1 thou/uL (0.0-0.7); ABSOLUTE LYMPHOCYTES 1.5 thou/uL (0.8-5.3); ABSOLUTE MONOCYTES 0.7 thou/uL (0.0-1.2); ABSOLUTE NEUTROPHILS 4.6 thou/uL (1.6-8.1); BASOPHILS 1.1 %; EOSINOPHILS 1.9 %; HEMATOCRIT 40.9 % (37.0-47.0); HEMOGLOBIN 13.4 gm/dL (12.0-15.0); LYMPHOCYTES 21.3 %; MCH 29.2 pg (26.0-34.0); MCHC 32.9 g/dL (28.0-37.0); MCV 88.9 fL (80.0-100.0); MPV 7.1 fl. (7.2-11.1); NUCLEATED RBCS 0 /100WBC; PLATELET COUNT* 340 thou/uL (150-400); POLYS 65.7 %; RDW-CV 15.3 % (10.5-14.5)
[2018-03-02 11:31] LABS: CALCIUM 8.3 mg/dL (8.5-10.1); CREATININE 0.9 mg/dL (0.6-1.3); POTASSIUM 4.3 mmol/L (3.5-5.1)
[2018-03-02 11:35] LABS: ALBUMIN 3.4 g/dL (3.4-5.0); APTT 66.5 Seconds (25.0-31.3); PROTIME 81.5 Seconds (9.20-11.50); TOTAL BILIRUBIN 0.2 mg/dL (<0.1-1.0); TOTAL PROTEIN 6.8 g/dL (6.4-8.2)
[2018-03-02 11:38] LABS: INR 8.1
[2018-03-02 15:17] LABS: URINE BILIRUBIN NEGATIVE (Negative); URINE BLOOD TRACE (Negative); URINE CLARITY CLEAR; URINE COLOR YELLOW; URINE GLUCOSE-RANDOM NEGATIVE (Negative); URINE KETONES NEGATIVE (Negative); URINE LEUKOCYTES-REFLEX NEGATIVE (Negative); URINE NITRITE-REFLEX NEGATIVE (Negative); URINE PROTEIN NEGATIVE (Negative); URINE SPECIFIC GRAVITY <= 1.005 (1.005-1.030); URINE UROBILINOGEN 0.2 E.U./dl (0.2-1.0)
[2018-03-02 16:04] VITALS: BP 101/58
--- NOTE | 2018-03-02 19:29 | NUR ---
PATIENT ARRIVED FROM ER THIS EVENING. PATIENT SETTLED TO ROOM. HISTORY, ASSESSMENT AND VITALS COMPLETED AND DOCUMENTED. PATIENT HAD COMPLAINTS OF HEADACHE WHICH HAS IMPROVED. PATIENT IS TOLERATING CLEAR LIQUIDS. PATIENT HAS HAD NO NAUSEA OR BOWEL MOVEMENTS THIS EVENING. PATIENT IS UP AD STEPHANE IN ROOM. PATIENT DENIES ANY NEEDS AT THIS TIME. CALL LIGHT WITHIN REACH. WILL CONTINUE TO MONITOR.
[2018-03-02 20:20] VITALS: BP 119/84
[2018-03-03 04:45] LABS: HEMATOCRIT 35.6 % (37.0-47.0); HEMOGLOBIN 11.8 gm/dL (12.0-15.0); MCHC 33.2 g/dL (28.0-37.0); MCV 90.4 fL (80.0-100.0); MPV 7.5 fl. (7.2-11.1); RBC 3.94 mil/uL (4.20-5.00); RDW-CV 15.6 % (10.5-14.5); WBC 6.5 thou/uL (4.0-11.0)
[2018-03-03 05:08] LABS: CALCIUM 8.3 mg/dL (8.5-10.1); CREATININE 0.8 mg/dL (0.6-1.3); MAGNESIUM 2.2 mg/dL (1.8-2.4); POTASSIUM 4.5 mmol/L (3.5-5.1)
[2018-03-03 05:09] LABS: PROTIME 70.9 Seconds (9.20-11.50)
--- NOTE | 2018-03-03 05:47 | NUR ---
PT SLEPT ON AND OFF OVERNIGHT, STATES SHE HAD SEVERAL STOOLS. STOOL SPECIMEN SENT TO LAB APPEARS SOFT MUSHY BROWN. UP AD STEPHANE IN ROOM. RAC IVF INFUSING PER PUMP. TRAMADOL GIVEN X1 FOR HEADACHE WITH GOOD RESULT. PRN RT TX GIVEN. AM LABS DRAWN, INR IMPROVED. NO [place] BLEEDING NOTED. REMAINS ON SP CONTACT ISOLATION FOR CDIFF HISTORY PENDING LAB RESULT, PO VANC GIVEN ORDERED. TOLERATING CLEAR LIQUIDS WITHOUT N/V. ABLE TO USE CALL LITE AND MAKE NEEDS KNOWN.
[2018-03-03 16:00] VITALS: BP 123/66
[2018-03-03 20:00] VITALS: BP 121/72
[2018-03-04 04:31] LABS: CALCIUM 8.6 mg/dL (8.5-10.1); MAGNESIUM 2.3 mg/dL (1.8-2.4); POTASSIUM 4.5 mmol/L (3.5-5.1)
[2018-03-04 04:59] LABS: PROTIME 50.6 Seconds (9.20-11.50)
--- NOTE | 2018-03-04 05:06 | NUR ---
DR ANDRADE NOTIFIED THAT PT IS HAS HEMATURIA AND IS HAVING INCREASED ABD PAIN, LAST INR IS 7.0 DRAWN YESTERDAY, RECEIVED N.O. FOR PT/INR AND UA WITH CX IF INDICATED
[2018-03-04 06:49] LABS: URINE BILIRUBIN NEGATIVE (Negative); URINE BLOOD 3+ (Negative); URINE CLARITY SL CLOUDY; URINE COLOR RED; URINE GLUCOSE-RANDOM NEGATIVE (Negative); URINE KETONES NEGATIVE (Negative); URINE LEUKOCYTES-REFLEX NEGATIVE (Negative); URINE NITRITE-REFLEX NEGATIVE (Negative); URINE PROTEIN 2+ (Negative); URINE UROBILINOGEN 0.2 E.U./dl (0.2-1.0)
[2018-03-04 07:38] VITALS: BP 132/67
[2018-03-04 07:44] LABS: SQUAMOUS 0-3 Few /LPF (0-3)
[2018-03-04 07:45] LABS: BACTERIA-REFLEX 1-9 Few /HPF (None Seen); MUCUS None Seen strn/LPF (None Seen); URINE RBC >20 Many /HPF (0-2); URINE WBC-REFLEX 0-5 Rare /HPF (0-5)
[2018-03-04 07:46] LABS: CASTS None Seen /LPF (None Seen); CRYSTALS None Seen /LPF (None Seen)
--- NOTE | 2018-03-04 13:32 | NUR ---
PATIENT CAME OUT TO DESK TO NOTIFY NURSE THAT RIGHT HAND IS SWOLLEN. IT IS PURPLISH, LOOKS LIKE A SWOLLEN BRUISE. CAP REFILL <3 SECONDS. PULSES 2+. PATIENT INR CURRENTLY ELEVATED. COOL TO TOUCH. PATIENT GIVEN WARM TOWEL TO WRAP HAND IN AND TO NOTIFY NURSE IF IT WORSENS.
[2018-03-04 16:00] VITALS: BP 121/70
--- NOTE | 2018-03-04 17:14 | NUR ---
INR DOWN TO 5.0 THIS SHIFT. CONTINUING TO HOLD COUMADIN. PATIENT STARTED TO COMPLAIN OF ABDOMINAL PAIN THIS SHIFT, CH[place] BLOOD NOTED IN URINE. CT COMPLETED. RESULTS REPORTED TO DR BOLES. UROLOGY CONSULTED. UROLOGY STATED THAT WE WILL CONTINUE TO MONITOR PATIENT BUT TO PLACE NPO AFTER MIDNIGHT IN CASE PROCEDURE MAY NEED TO BE COMPLETED TOMORROW. PATIENT INFORMED AND IS AGREEABLE TO THIS. PAIN COMPLAINTS HIGHER PAIN MEDICATIONS WEAR OFF, PRN MORPHINE GIVEN X2, TRAMADOL X2. DENIES OTHER CONCERNS FOR NURSING STAFF.
[2018-03-04 20:10] VITALS: BP 101/59
--- NOTE | 2018-03-05 05:57 | NUR ---
PT SLEPT FAIRLY WELL OVERNIGHT. UP TO BR TO VOID-URINE BLOODY. R HAND REMAINS EDEMATOUS AND BRUISED, WITH BRUISING EXTENDING UP INTO WRIST AND AROUND THUMB. NO [place] BLEEDING NOTED OTHER THAN BLOODY URINE. HAS BEEN NPO SINCE MIDNIGHT DR ORDERED. UROLOGY TO SEE PT. LAVERNE SL. RAPID STREP NEGATIVE.RECEIVING PO VANC ORDERED. IV AND PO PAIN MED FOR CO LLQ PAIN RADIATING AROUND TO BACK. AM LABS ORDERED. ABLE TO USE CALL LITE AND MAKE NEEDS KNOWN.
[2018-03-05 07:41] LABS: ABSOLUTE BASOPHILS 0.1 thou/uL (0.0-0.2); ABSOLUTE EOSINOPHILS 0.1 thou/uL (0.0-0.7); ABSOLUTE LYMPHOCYTES 2.2 thou/uL (0.8-5.3); ABSOLUTE NEUTROPHILS 7.1 thou/uL (1.6-8.1); BASOPHILS 0.9 %; EOSINOPHILS 1.2 %; HEMATOCRIT 35.3 % (37.0-47.0); HEMOGLOBIN 11.6 gm/dL (12.0-15.0); LYMPHOCYTES 20.7 %; MCH 29.9 pg (26.0-34.0); MCHC 32.9 g/dL (28.0-37.0); MONOCYTES 9.3 %; MPV 7.3 fl. (7.2-11.1); NUCLEATED RBCS 0 /100WBC; PLATELET COUNT* 310 thou/uL (150-400); POLYS 67.9 %; RBC 3.88 mil/uL (4.20-5.00); RDW-CV 15.2 % (10.5-14.5); WBC 10.5 thou/uL (4.0-11.0)
[2018-03-05 08:00] VITALS: BP 130/65
--- NOTE | 2018-03-05 15:27 | NUR ---
SPOKE TO THE PATIENT TO DISCUSS HER HOME SITUATION, DISCHARGE PLANNING, AND TO INFORM OF THE ROLE OF CM. PATIENT ALERT, ORIENTED, AND INDEPENDENT WITH ADL'S. PATIENT RESIDES AT HOME WITH HER DTR, AND SHE IS SUPPORTIVE AND INVOLVED IN HER POC. PATIENT DOES NOT USE ANY DME. PATIENT HAS A HX OF HH AFTER SX, BUT COULD NOT RECALL THE NAME. PATIENT HAS A HX OF SNF AT [facility]. PATIENT PLANS TO RETURN HOME AT D/C. CM WILL REMAIN AVAILABLE TO ASSIST AND FOLLOW NEEDED.
[2018-03-05 15:30] VITALS: BP 128/75
--- NOTE | 2018-03-05 17:46 | NUR ---
PT PROGRESSING TOWARDS GOALS THIS SHIFT. UROLOGY CONSULTED. NO INTERVENTIONS PLANNED AT THIS TIME, CONTINUE TO MONITOR PT. PT HAS HAD C/O PAIN AND PRN IV MORPHINE HELPS RELIEVE PAIN. NO OTHER CONCERNS AT THIS TIME. CLWR. WCTM.
[2018-03-05 20:15] VITALS: BP 158/75
[2018-03-06 04:00] VITALS: BP 136/66
--- NOTE | 2018-03-06 07:57 | NUR ---
RECIEVED REPORT AND ASSUMED CARE OF PT AT 1930. PT HAVING BACK AND FLANK PAIN SINCE ADMISSION. PT GIVEN 4 MG MORPHINE IV WITH GOOD RESULTS DURING SHIFT. AT 0630 PT RANG CALL LIGHT AND REPORTED STABBING PAIN IN LEFT LOWER QUADRANT RADIATING AROUND TO BACK. PT LAYING ON RIGHT SIDE IN FEAL POSITION GRIMACING AND MOANING IN PAIN. PT REPORTED ATTEMPTING TO VOID BUT NOT BEING ABLE TO. BLADDER SCAN SHOWED [address] BOLES PAGED AND INFORMED OF SUDDEN ONSET OF PAIN. RECIEVED NEW ORDERS FOR PAIN MEDS. REPORT GIVEN TO DAY SHIFT RN.
[2018-03-06 07:59] LABS: PROTIME 11.3 Seconds (9.20-11.50)
[2018-03-06 08:00] VITALS: BP 128/74
[2018-03-06 08:00] LABS: INR 1.1
[2018-03-06 08:15] LABS: ABSOLUTE BASOPHILS 0.1 thou/uL (0.0-0.2); ABSOLUTE EOSINOPHILS 0.2 thou/uL (0.0-0.7); ABSOLUTE LYMPHOCYTES 2.5 thou/uL (0.8-5.3); ABSOLUTE MONOCYTES 0.8 thou/uL (0.0-1.2); ABSOLUTE NEUTROPHILS 5.3 thou/uL (1.6-8.1); BASOPHILS 0.7 %; EOSINOPHILS 1.9 %; HEMATOCRIT 33.7 % (37.0-47.0); HEMOGLOBIN 11.1 gm/dL (12.0-15.0); LYMPHOCYTES 28.2 %; MCH 30.2 pg (26.0-34.0); MCV 91.5 fL (80.0-100.0); MONOCYTES 9.4 %; MPV 7.3 fl. (7.2-11.1); NUCLEATED RBCS 0 /100WBC; PLATELET COUNT* 280 thou/uL (150-400); POLYS 59.8 %; RBC 3.69 mil/uL (4.20-5.00); RDW-CV 14.9 % (10.5-14.5); WBC 8.8 thou/uL (4.0-11.0)
--- NOTE | 2018-03-06 08:16 | NUR ---
SPOKE WITH UROLOGIST DR HKAN, PATIENT TO BE KEPT NPO FOR POSSIBLE STENT PLACEMENT TODAY.
[2018-03-06 08:21] LABS: POTASSIUM 3.9 mmol/L (3.5-5.1)
[2018-03-06 16:30] VITALS: BP 109/59
[2018-03-06 19:15] VITALS: BP 120/59
--- NOTE | 2018-03-06 19:19 | NUR ---
VSS-AFEBRILE. PAIN WELL CONTROLLED WITH PRESCRIBED MEDICATIONS. OOB AD STEPHANE-STEADY ON FEET. TOLERATING DIET WITH NO REPORTED N/V.
--- NOTE | 2018-03-06 23:33 | NUR ---
INITAL ASSESMENT COMPLETED AT 1914. PT RESTING QUIETLY IN BED AT THAT TIME. PT RECIEVED BILATERAL URETER STENTS DURING DAY SHIFT. PT VIDING WITHOUT DIFFICULTY. T RECIEVING PO AND IV PAIN MEDICINE FOR PAIN CONTRL WITH GOOD RESULTS. CALL LIGHT IN REACH, PT USING APPROPRIATELY.
[2018-03-07 04:30] VITALS: BP 149/63
[2018-03-07 05:04] LABS: CALCIUM 8.6 mg/dL (8.5-10.1); CREATININE 1.2 mg/dL (0.6-1.3)
[2018-03-07 05:05] LABS: POTASSIUM 5.7 mmol/L (3.5-5.1)
--- NOTE | 2018-03-07 05:58 | NUR ---
PT CONTINUES TO EXPERIENCE BACK, PELVIC AND FLANK PAIN. PT REPORTS PAIN IS LESS SEVERE IN NATURE THAN IT WAS PRIOR TO STENT PLACEMENT. PT'S VITAL SIGNS WITHIN NORMAL LIMITS, WILL CONTINUE TO MONITOR.
[2018-03-07 08:10] VITALS: BP 118/60
[2018-03-07 09:36] VITALS: BP 149/63
[2018-03-07] MEDS ORDERED: IBUPROFEN 800800 M1 PO (11:39)
[2018-03-07] MEDS ORDERED: NEURONTIN600 MG PO (11:39)
[2018-03-07] MEDS ORDERED: OXYCODONE HCL15 MG PO (11:39)
[2018-03-07] MEDS ORDERED: XARELTO20 MG PO (11:39)
[2018-03-07] MEDS ORDERED: LEVSIN0.125 MG SUBLING (11:39)
[2018-03-07] MEDS ORDERED: PREDNISONE 10 M10 MG PO (11:39)
[2018-03-07] MEDS ORDERED: CIPRO500 MG PO (11:41)
[2018-03-07 11:53] VITALS: BP 149/63
[2018-03-07] MEDS ORDERED: TYLENOL EXTRA500 MG PO (12:03)
--- NOTE | 2018-03-07 14:10 | NUR ---
PATIENT DISCHARGED TO HOME. DISCHARGE PAPERS REVIEWED AND SIGNED. PRESCRIPTIONS AND INFORMATION SHEETS GIVEN. IV REMOVED. PATIENT DENIES ANY FURTHER NEEDS. PATIENT TAKEN BY WHEELCHAIR TO EXIT. LEFT BY OWN VEHICLE.
== END 2018-03-07 14:10 | disposition home or self-care (01) | DRG 988 ==
LOC: M.ERS 10:33 → M.TBA-ER 14:08 → M.3W 14:08 → M.TBA-ER 14:08 → M.3W 14:08
PROVIDERS: Family Medicine; Internal Medicine; ADMIT Internal Medicine
PROC: 0T788DZ Dilation of Bilateral Ureters with Intraluminal Device, Via Natural or Artificial Opening Endoscopic (ICD-10-PCS; principal; 2018-03-06)
PROC: BT141ZZ Fluoroscopy of Kidneys, Ureters and Bladder using Low Osmolar Contrast (ICD-10-PCS; principal; 2018-03-06)
DX: A04.9 Bacterial intestinal infection, unspecified (principal); N13.0 Hydronephrosis with ureteropelvic junction obstruction; D68.59 Other primary thrombophilia; G89.29 Other chronic pain; G25.81 Restless legs syndrome; E03.9 Hypothyroidism, unspecified; K21.9 Gastro-esophageal reflux disease without esophagitis; F32.9 Major depressive disorder, single episode, unspecified; R51 Headache; J02.9 Acute pharyngitis, unspecified; N23 Unspecified renal colic; K31.84 Gastroparesis; I10 Essential (primary) hypertension; E86.9 Volume depletion, unspecified; Z96.653 Presence of artificial knee joint, bilateral; Z88.0 Allergy status to penicillin; Z88.6 Allergy status to analgesic agent; Z90.49 Acquired absence of other specified parts of digestive tract; Z90.710 Acquired absence of both cervix and uterus; Z98.1 Arthrodesis status; I25.2 Old myocardial infarction; Z87.891 Personal history of nicotine dependence; Z86.718 Personal history of other venous thrombosis and embolism; Z79.01 Long term (current) use of anticoagulants; Z86.711 Personal history of pulmonary embolism; Z79.899 Other long term (current) drug therapy

== ENCOUNTER 2018-04-06 10:39 | Emergency (ER) | payer OTHER ==
[~2018-04-06] VITALS: Ht 165.1 cm; Wt 68.0 kg
[~2018-04-06 10:39] MED LIST changes: +CIPRO500 MG PO; +IBUPROFEN 800800 M1 PO; +LEVSIN0.125 MG SUBLING; +LOPERAMIDE 2 MG2 M1 PO; +OXYCODONE HCL15 MG PO; +PREDNISONE 10 M10 MG PO; +TYLENOL EXTRA500 MG PO; +XARELTO20 MG PO
[2018-04-06 11:55] VITALS: BP 180/94
== END 2018-04-06 11:56 | disposition home or self-care (01) ==
LOC: M.ERS 10:39
DX: M79.642 Pain in left hand (principal); I10 Essential (primary) hypertension; E03.9 Hypothyroidism, unspecified; K21.9 Gastro-esophageal reflux disease without esophagitis; F32.9 Major depressive disorder, single episode, unspecified; G89.29 Other chronic pain; I25.2 Old myocardial infarction; Z96.653 Presence of artificial knee joint, bilateral; Z90.49 Acquired absence of other specified parts of digestive tract; Z90.710 Acquired absence of both cervix and uterus; Z88.0 Allergy status to penicillin; Z88.5 Allergy status to narcotic agent

== ENCOUNTER → 2018-04-24 | Outpatient (CLI) | payer OTHER | LOC: M.CT 15:30 → M.ULTRA 16:00 | DX: J98.4 Other disorders of lung (principal); G89.29 Other chronic pain; R06.02 Shortness of breath ==

== ENCOUNTER → 2018-08-31 | Outpatient (CLI) | payer OTHER ==
[2018-08-31 12:41] LABS: CREATININE 1.2 mg/dL (0.6-1.3)
== END ==
LOC: M.LAB 12:00 → M.CT 12:30
PROVIDERS: Family Medicine
DX: R07.9 Chest pain, unspecified (principal); R06.02 Shortness of breath; Z86.718 Personal history of other venous thrombosis and embolism

== ENCOUNTER → 2018-09-11 | Outpatient (CLI) | payer OTHER | LOC: M.ULTRA 11:00 → M.RAD 11:25 → M.ULTRA 11:25 | DX: Z12.31 Encounter for screening mammogram for malignant neoplasm of breast (principal); E03.4 Atrophy of thyroid (acquired); E05.90 Thyrotoxicosis, unspecified without thyrotoxic crisis or storm ==

== ENCOUNTER 2018-09-28 10:04 | Inpatient (IN) | payer OTHER ==
[~2018-09-28] VITALS: Ht 160 cm; Wt 72.9 kg
[2018-09-28 10:11] VITALS: BP 188/102
[2018-09-28] MEDS ORDERED: NAMENDA 5 MG TAB5 M1 PO (10:17)
[2018-09-28] MEDS ORDERED: HYDROCHLOROTHIA25 M2 PO (10:17)
[2018-09-28 10:49] LABS: ABSOLUTE BASOPHILS 0.1 thou/uL (0.0-0.2); ABSOLUTE EOSINOPHILS 0.1 thou/uL (0.0-0.7); ABSOLUTE LYMPHOCYTES 1.2 thou/uL (0.8-5.3); ABSOLUTE MONOCYTES 0.7 thou/uL (0.0-1.2); ABSOLUTE NEUTROPHILS 3.7 thou/uL (1.6-8.1); BASOPHILS 1.1 %; EOSINOPHILS 2.1 %; HEMATOCRIT 37.7 % (37.0-47.0); HEMOGLOBIN 12.5 gm/dL (12.0-15.0); LYMPHOCYTES 20.9 %; MCH 28.6 pg (26.0-34.0); MCHC 33.1 g/dL (28.0-37.0); MCV 86.5 fL (80.0-100.0); MONOCYTES 12.8 %; MPV 8.2 fl. (7.2-11.1); NUCLEATED RBCS 0 /100WBC; PLATELET COUNT* 309 thou/uL (150-400); POLYS 63.1 %; RBC 4.36 mil/uL (4.20-5.00); RDW-CV 16.7 % (10.5-14.5); WBC 5.8 thou/uL (4.0-11.0)
[2018-09-28 10:56] LABS: APTT 29.6 Seconds (25.0-31.3); PROTIME 10.1 Seconds (9.20-11.50)
[2018-09-28 11:18] LABS: ALBUMIN 3.7 g/dL (3.4-5.0); ALKALINE PHOSPHATASE 100 U/L (46-116); ANION GAP 12 mmol/L (7-16); BUN 11 mg/dL (7-18); CALCIUM 8.5 mg/dL (8.5-10.1); CHLORIDE 106 mmol/L (98-107); CO2 25 mmol/L (21-32); CREATININE 0.8 mg/dL (0.6-1.3); GLUCOSE 114 mg/dL (70-99); LIPASE 159 U/L (73-393); POTASSIUM 3.1 mmol/L (3.5-5.1); SGOT 27 U/L (15-37); SGPT 29 U/L (30-65); SODIUM 143 mmol/L (136-145); TOTAL BILIRUBIN 0.4 mg/dL (<0.1-1.0); TOTAL PROTEIN 7.2 g/dL (6.4-8.2); TROPONIN-I LEVEL <0.06 ng/mL (<0.06)
[2018-09-28] MEDS ORDERED: XARELTO10 MG PO (11:36)
[2018-09-28 11:53] LABS: URINE BILIRUBIN NEGATIVE (Negative); URINE BLOOD TRACE (Negative); URINE CLARITY CLEAR; URINE COLOR YELLOW; URINE GLUCOSE-RANDOM NEGATIVE (Negative); URINE KETONES NEGATIVE (Negative); URINE LEUKOCYTES-REFLEX NEGATIVE (Negative); URINE NITRITE-REFLEX NEGATIVE (Negative); URINE PROTEIN TRACE (Negative); URINE SPECIFIC GRAVITY 1.025 (1.005-1.030); URINE UROBILINOGEN 0.2 E.U./dl (0.2-1.0)
[2018-09-28 11:59] LABS: AMP/METHAMP Negative (Negative); BARBITURATES Negative (Negative); BENZODIAZEPINES Negative (Negative); COCAINE Negative (Negative); METHADONE Negative (Negative); OPIATES POSITIVE (Negative); PCP Negative (Negative); THC Negative (Negative)
[2018-09-28 12:36] LABS: BE -3.7 mmol/L (-2 to +3); PCO2 35.5 mmHg (35.0-45.0); PO2 92.9 mmHg (75.0-100.0); pH 7.385 (7.340-7.450)
--- NOTE | 2018-09-28 12:45 | NUR ---
PT TAKEN TO CT SCAN .
[2018-09-28 15:52] VITALS: BP 126/58
[2018-09-28 16:00] VITALS: BP 132/84
--- NOTE | 2018-09-28 17:46 | 2DMMODE ---
[place] [address] 2 D/M-MODE ECHOCARDIOGRAM Name: PEPPER PAIZ Room: [address] IN [facility]#: [id number] Admission: 09/28/18 Attend Phys: Franc Thornton, Discharge: Date of : 48 Date of Service: 09/28/18 1746 Report #: [id number] THIS REPORT FOR: //name// APPROVED REPORT Study performed: 09/28/2018 15:13:53 EXAM: Comprehensive 2D, Doppler, and color-flow Echocardiogram Patient Location: In-Patient Room #: er Status: routine BSA: 1.74 HR: 73 bpm BP: 139/60 mmHg Rhythm: NSR Other Information Study Quality: Good Indications Dyspnea 2D Dimensions IVSd: 12.17 (7-11mm) LVOT Diam: 18.18 (18-24mm) LVDd: 49.95 mm PWd: 10.77 (7-11mm) Ascending Ao: 29.43 (22-36mm) LVDs: 35.99 (25-40mm) Aortic Root: 28.02 mm Volumes Left Atrial Volume (Systole) LA ESV Index: 30.20 mL/m2 Aortic Valve AoV Peak Andrea.: 1.49 m/s AO Peak Gr.: 8.82 mmHg LVOT Max P.24 mmHg AO Mean Gr.: 5.22 mmHg LVOT Mean P.29 mmHg LVOT Max V: 1.25 m/s AO V2 VTI: 29.03 cm LVOT Mean V: 0.85 m/s MACIEJ (VTI): 2.25 cm2 LVOT V1 VTI: 25.12 cm Mitral Valve E/A Ratio: 1.11 MV Decel. Time: 194.76 ms MV E Max Andrea.: 0.96 m/[place] [address] 2 D/M-MODE ECHOCARDIOGRAM Name: PEPPER PAIZ Room: [address] IN [facility].#: [id number] Admission: 09/28/18 Attend Phys: Franc Thornton, Discharge: Date of : 48 Date of Service: 09/28/18 1746 Report #: [id number] MV PHT: 56.48 ms MVA (PHT): 3.90 cm2 TDI E/Lateral E': 12.00 E/Medial E': 16.00 Medial E' Andrea.: 0.06 m/s Lateral E' Andrea.: 0.08 m/s Pulmonary Valve PV Peak Andrea.: 0.90 m/s PV Peak Gr.: 3.24 mmHg Left Ventricle The left ventricle is normal size. There is global hypokinesis of the left ventricle. There is normal left ventricular wall thickness. Left ventricular systolic function is moderately decreased. LVEF is 35-40%. The left ventricular diastolic function is normal. Right Ventricle The right ventricle is normal size. The right ventricular systolic function is normal. Atria Left atrium is mildly dilated. The right atrium size is normal. Aortic Valve The aortic valve is normal in structure. No aortic regurgitation is present. There is no aortic valvular stenosis. Mitral Valve The mitral valve is normal in structure. Mild mitral regurgitation. No evidence of mitral valve stenosis. Tricuspid Valve The tricuspid valve is normal in structure. Unable to assess PA pressure. Trace tricuspid regurgitation. Pulmonic Valve Pulmonic valve is not well visualized. There is no pulmonic valvular regurgitation. Great Vessels The aortic root is normal in size. IVC is normal in size and collapses >50% with [place] [address] 2 D/M-MODE ECHOCARDIOGRAM Name: PAIZPEPPER Lu Room: [address] IN [facility]#: [id number] Admission: 09/28/18 Attend Phys: Franc Thornton, Discharge: Date of : 48 Date of Service: 09/28/18 1746 Report #: [id number] There is no pericardial effusion. <Conclusion> LVEF is 35-40%. Left atrium is mildly dilated. Mild mitral regurgitation. There is global hypokinesis of the left ventricle. <ELECTRONICALLY SIGNED> By: Sukhi Alvarez MD, FAC 09/28/181745 45 45 Sukhi Alvarez MD, FAC /INF
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
[2018-09-28 20:00] VITALS: BP 140/66
[2018-09-29] VITALS: BP 136/69
[2018-09-29 04:00] VITALS: BP 131/67
[2018-09-29 04:53] LABS: HEMOGLOBIN 11.9 gm/dL (12.0-15.0); MCH 28.8 pg (26.0-34.0); MCHC 33.1 g/dL (28.0-37.0); MPV 8.2 fl. (7.2-11.1); RBC 4.14 mil/uL (4.20-5.00); RDW-CV 17.3 % (10.5-14.5); WBC 4.9 thou/uL (4.0-11.0)
[2018-09-29 04:59] LABS: ANION GAP 7 mmol/L (7-16); BUN 13 mg/dL (7-18); CALCIUM 8.2 mg/dL (8.5-10.1); CHLORIDE 104 mmol/L (98-107); CO2 29 mmol/L (21-32); CREATININE 0.9 mg/dL (0.6-1.3); GLUCOSE 186 mg/dL (70-99); POTASSIUM 3.8 mmol/L (3.5-5.1); SODIUM 140 mmol/L (136-145)
[2018-09-29 05:04] LABS: CHOLESTEROL 235 mg/dL (<200); HDL CHOLESTEROL 62 mg/dL (>40); LDL CHOLESTEROL 151 mg/dL (<100); MAGNESIUM 2.3 mg/dL (1.8-2.4); TC:HDL 3.8 Ratio (Not establshd); TRIGLYCERIDE 114 mg/dL (<150); VLDL 23 mg/dL (<40)
[2018-09-29 05:05] LABS: SERUM ASSESSMENT CLEAR
[2018-09-29 08:00] VITALS: BP 128/74
[2018-09-29 12:00] VITALS: BP 120/59
[2018-09-29] MEDS ORDERED: VITAMIN D5000 UNIT PO (15:06)
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
[2018-09-29 16:00] VITALS: BP 121/66
[2018-09-29 20:00] VITALS: BP 128/70
[2018-09-30] VITALS: BP 129/63
[2018-09-30 02:10] LABS: GLYCOHEMOGLOBIN (HGB A1C) 5.8 % (4.8-5.6)
[2018-09-30 04:00] VITALS: BP 123/61
[2018-09-30 06:26] LABS: BE 1.8 mmol/L (-2 to +3); PCO2 41.9 mmHg (35.0-45.0); PO2 78.9 mmHg (75.0-100.0); pH 7.419 (7.340-7.450)
[2018-09-30 06:36] LABS: CALCIUM 9.4 mg/dL (8.5-10.1); CREATININE 1.1 mg/dL (0.6-1.3); MAGNESIUM 2.6 mg/dL (1.8-2.4); POTASSIUM 4.2 mmol/L (3.5-5.1)
[2018-09-30 08:00] VITALS: BP 125/57
[2018-09-30] MEDS ORDERED: ULTRAM 50MG TAB50 MG PO (10:02)
[2018-09-30 11:47] VITALS: BP 125/62
--- NOTE | 2018-09-30 12:18 | NUR ---
ASSUMED PT CARE AT 0800, AOX4, UP AD STEPHANE, 02 SAT 90'S 2L NC. TRACING SR, BBB ON MONITOR. PT DENIES PAIN, SOB WITH ACTIVITY. PT OUT OF ISOLATION PRECAUTION. PT FOR NM STRESS TEST TOMORROW, NPO MIDNIGHT. HAD CHEST XRAY. RECEIVED ANTIBIOTIC.IV ACCESS INTACT. LAST BM TODAY. VSS, AM ASSESSMENT CHARTED. MEDS GIVEN PER MAR. HOURLY ROUNDING, WILL CONTINUE TO MONITOR.
[2018-09-30 16:28] VITALS: BP 133/67
[2018-09-30 20:00] VITALS: BP 122/68; BP 133/70
[2018-10-01] VITALS: BP 113/62
[2018-10-01 04:00] VITALS: BP 130/75
[2018-10-01 04:43] LABS: HEMATOCRIT 36.8 % (37.0-47.0); MCH 28.6 pg (26.0-34.0); MCHC 32.7 g/dL (28.0-37.0); MCV 87.3 fL (80.0-100.0); MPV 8.2 fl. (7.2-11.1); RBC 4.21 mil/uL (4.20-5.00); RDW-CV 17.3 % (10.5-14.5); WBC 8.1 thou/uL (4.0-11.0)
[2018-10-01 05:27] LABS: CALCIUM 9.1 mg/dL (8.5-10.1); CREATININE 1.1 mg/dL (0.6-1.3); MAGNESIUM 2.3 mg/dL (1.8-2.4); POTASSIUM 3.8 mmol/L (3.5-5.1)
--- NOTE | 2018-10-01 06:54 | NUR ---
PT REPORTED SEVERE MILLER AFTER NITRO AGAIN THIS SHIFT. PRN MEDICATIONS EFFECTIVE ENOUGH PT ABLE TO FALL ASLEEP. MILD CHEST PAIN REPORTED AT BEGINNING OF SHIFT ONLY. SR ON MONITOR. CALL LIGHT IN REACH. HOURLY ROUNDING FOR SAFETY.
[2018-10-01 08:00] VITALS: BP 151/62
--- NOTE | 2018-10-01 09:35 | NUR ---
cm completed initial assessment to discuss d/c plan. cm explained role of cm. pt is alert and oriented. pt lives at home w/dtr and granddtr. has good family support. drives, independent w/adls. no dme. hx wtih [facility] after having knee surgery. has no preference for hh. cm to remain available to support as needed.
[2018-10-01] MEDS ORDERED: CEFUROXIME500 MG PO (09:37)
[2018-10-01] MEDS ORDERED: LASIX 40 MG TAB40 M1 PO (09:37)
[2018-10-01] MEDS ORDERED: PREDNISONE 20 M20 MG PO (09:37)
[2018-10-01] MEDS ORDERED: METOPROLOL SUCC25 M1 PO (09:37)
[2018-10-01] MEDS ORDERED: LISINOPRIL5 MG PO (09:37)
[2018-10-01] MEDS ORDERED: B12INJ SUBQ (09:37)
[2018-10-01] MEDS ORDERED: AZITHROMYCIN 2250 MG PO (09:37)
[2018-10-01 11:23] VITALS: BP 122/67
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
[2018-10-01 15:05] VITALS: BP 148/60
--- NOTE | 2018-10-01 16:46 | EKG ---
[place] [address] ELECTROCARDIOGRAM REPORT Name: PEPPER PAIZ Room: [address] ADM IN M.R.#: [id number] Admission: 09/28/18 Attend Phys: Franc Thornton MD Discharge: Date of : 48 Report #: [id number] THIS REPORT FOR: //name// [facility] ED Test Date: 2018-09-28 Test Time: 10:12:20 Pat Name: PEPPER PAIZ Department: Room: [facility] Gender: F Excellence Manager: : 1950 Requested By: Zaida Yanes Order Number: [id number] MD: Steve Monzon Measurements Intervals [place] Rate: 82 P: -19 ME: 121 QRS: 31 QRSD: 141 T: 110 QT: 440 QTc: 514 Interpretive Statements Sinus rhythm Left bundle branch block Compared to ECG 03/27/2018 11:35:55 No significant changes Electronically Signed On 10-01-2018 16:46:20 CDT by Steve Monzon [email or web address] <ELECTRONICALLY SIGNED> By: Steve Monzon MD, [facility] 10/01/18 1646 1012 11 Steve Monzon MD, [facility] /EPI
--- NOTE | 2018-10-01 16:52 | EKG ---
[place] [address] ELECTROCARDIOGRAM REPORT Name: PEPPER PAIZ Room: [address] ADM IN [facility].R.#: [id number] Admission: 09/28/18 Attend Phys: Franc Thornton MD Discharge: Date of : 48 Report #: [id number] THIS REPORT FOR: //name// [facility] Test Date: 2018-09-29 Test Time: 08:57:01 Pat Name: PEPPER PAIZ Department: Room: [address] Gender: F Full Charge Bookkeeper: : 1950 Requested By: Megha Echevarria Order Number: [id number] Reading MD: Steve Monzon Measurements Intervals [place] Rate: 77 P: 67 [place]: 136 QRS: 51 QRSD: 136 T: 130 QT: 494 QTc: 560 Interpretive Statements Sinus arrhythmia Left bundle branch block Baseline wander in lead(s) V2,V3 Compared to ECG 03/27/2018 11:35:55 Sinus rhythm no longer present Electronically Signed On 10-01-2018 16:52:11 CDT by Steve Monzon [email or web address] <ELECTRONICALLY SIGNED> By: Steve Monzon MD, [facility] 10/01/18 1652 0857 0857 Steve Monzon MD, [facility] /EPI
--- NOTE | 2018-10-01 16:57 | EKG ---
[place] [address] ELECTROCARDIOGRAM REPORT Name: PEPPER PAIZ Room: [address] ADM IN [facility].R.#: [id number] Admission: 09/28/18 Attend Phys: Franc Thornton MD Discharge: Date of : 48 Report #: [id number] THIS REPORT FOR: //name// [facility] Test Date: 2018-09-29 Test Time: 23:53:03 Pat Name: PEPPER PAIZ Department: Room: [address] Gender: F Filter Cloth Maker: [facility] : 1950 Requested By: Franc Thornton Order Number: [id number] Raymundo MD: Steve Monzon Measurements Intervals [place] Rate: 67 P: 73 [place]: 132 QRS: 60 QRSD: 149 T: 129 QT: 472 QTc: 499 Interpretive Statements Sinus rhythm Left bundle branch block Baseline wander in lead(s) V2 Compared to ECG 03/27/2018 11:35:55 No significant changes Electronically Signed On 10-01-2018 16:57:03 CDT by Steve Monzon [email or web address] <ELECTRONICALLY SIGNED> By: Steve Monzon MD, FAC 10/01/18 1657 2353 [id number] Steve Monzon MD, [facility] /EPI
--- NOTE | 2018-10-01 18:09 | NUR ---
PT UP IN ROOM AND HALLS WITH STEADY GAIT. PT DENIES CHEST PAIN. NSR ON MONITOR. IVF INFUSING. TOLERATING PO WELL. STRESS TEST THIS PM. PENDING RESULTS
--- NOTE | 2018-10-01 18:17 | NUR ---
PT UP IN ROOM WITH STEADY GAIT. REPORTS OCASSIONAL SOA. TOLERATING PO WELL. PLAN FOR STRESS TEST IN AM
[2018-10-01 20:45] VITALS: BP 127/69
[2018-10-02] VITALS: BP 136/67
[2018-10-02 04:00] VITALS: BP 131/59
--- NOTE | 2018-10-02 06:39 | NUR ---
VITAL SIGNS WITHIN NORMAL LIMITS DURING SHIFT. PT CONTINUES TO HAVE HEADACHE RELATED TO NITRO. PT RECIEVED PO ULTRAM AND TYLENOL FOR PAIN DURING SHIFT. PT NPO AFTER MIDNIGHT FOR STRESS TEST TODAY.
[2018-10-02 08:00] VITALS: BP 123/63
[2018-10-02] MEDS ORDERED: LIPITOR10 MG PO (09:57)
[2018-10-02 11:13] VITALS: BP 119/68
--- NOTE | 2018-10-02 11:20 | NUR ---
ASSUMED PT CARE AT 0800, AOX4, UP AD STEPHANE, O2 SAT 90'S RA. TRACING SR ON TELE. PT DENIES PAIN. NPO FOR STRESS TEST. VSS, AM ASSESSMENT CHARTED. HOURLY ROUNDING, CALL LIGHT WITHIN REACH. WILL CONTINUE TO MONITOR.
[2018-10-02 15:07] VITALS: BP 119/63
--- NOTE | 2018-10-02 18:09 | CARDNUC ---
[place] [address] CARDIAC NUCLEAR IMAGING REPORT Name: PEPPER PAIZ Room: [address] IN [facility]#: [id number] Admission: 09/28/18 Attend Phys: Franc Thornton, Discharge: Date of : 48 Date of Service: 10/02/18 1809 Report #: [id number] THIS REPORT FOR: //name// APPROVED REPORT Imaging Protocol: Rest Tc-99m/Stress Tc-99m 2 days Study performed: 09/29/2018 08:56:00 Indication: Chest pain, Dyspnea Patient Location: In-Patient Room #: 229 Stress Tech: Cristal Colbert Stress Nurse: Marjorie Peraza RN NM Tech:CHRIS Sibley Ht: 5 ft 2 in Wt: 161 lbs BSA: 1.74 m2 BMI: 29.44 Medical History Medical History: Angina, CAD s/p [place], Cardiomyopathy, CHF, Fatigue, Former Smoker, HTN, Hyperlipidemia, PVD, LBBB, SOB, HX DVT/PE, Pulmonary Edema, Liver Dysfunction. Medications: ASA 325 MG, Furosemide, Losartan, Metoprolol, Xarelto, Lipitor, Hydralazine, NTG, Home meds include- HCTZ, Lisinopril. Allergies: Penicillins, Hydrocodone. Cardiac Risk Factors: Age, FHX of CAD, HTN, Hyperlipidemia, SOB, Past Smoker, PVD. Previous Cardiac Procedures: Myocardial infarction Pretest Chest Pain Characteristics: No chest pain Exercise History: Indeterminate Physical Disabilities: Weak, fatigue. Meds Held (24 hrs): Metoprolol, NTG. Resting Data Rest SPECT myocardial perfusion imaging was performed in supine position 30 minutes following the intravenous injection of 10.6 mCi of Tc-99m Sestamibi. Time of rest injection: 1225 Date: 10/01/2018 The images were gated to evaluate regional wall motion and calculate left ventricular ejection fraction. Administration Route: IV Administration Site: Right [place] [address] CARDIAC NUCLEAR IMAGING REPORT Name: PEPPER PAIZ Room: [address]#: [id number] Admission: 09/28/18 Attend Phys: Franc Thornton, Discharge: Date of : 48 Date of Service: 10/02/18 1809 Report #: [id number] Pharmacologic stress test was performed by injecting Regadenoson 0.4 mg IV push over 10-15 seconds immediately followed by the intravenous injection of 29.4 mCi of Tc-99m Sestamibi. Time of stress injection: 1200 Date: 10/02/2018 Administration Route: IV Administration Site: Right AC Gated Stress SPECT was performed 40 minutes after stress injection. The images were gated to evaluate regional wall motion and calculate left ventricular ejection fraction. Prone imaging was performed. Stress Test Details Stress Test: Pharmacologic stress testing performed using 0.4 mg of regadenoson per 5 mL given IV over 10 seconds. Reason for pharmacologic stress test: Weak, fatigued.. HR Max Heart Rate (APMHR): 152 bpm Resting HR: 74 bpm Target HR (85% APMHR): 129 bpm Max HR Achieved: 96 bpm % of APMHR: 63 Recovery HR: 88 bpm BP Resting BP: 131/84 mmHg Max BP: 124/67 mmHg Recovery BP: 144/76 mmHg ECG Resting ECG: Sinus Rhythm, LBBB Stress ECG: Sinus Rhythm, LBBB ST Change: None Arrhythmia: None Recovery ECG: Sinus Rhythm, LBBB Recovery ST Change: None Recovery Arrhythmia: None Clinical Reason for Termination: Completed protocol Stress Symptoms: SOA, Dizzy, Chest Tightness, Throat/Neck tightness. Exercise duration: 00 min 00 sec Exercise capacity: 1.00 METs The patient tolerated Lexiscan infusion without significant cardiac [place] [address] CARDIAC NUCLEAR IMAGING REPORT Name: PEPPER PAIZ Room: [address]#: [id number] Admission: 09/28/18 Attend Phys: Franc Thornton, Discharge: Date of : 48 Date of Service: 10/02/18 1809 Report #: [id number] 67 year old female inpatient presented with recent HX of CP, SOA and Pulmonary Edema. Patient tolerated sitting Lexiscan well. Recovery unremarkable with PO caffeine, effective. Patient was escorted by staff via wheelchair to Nuclear Medicine for images. Patient was stable with no complaints at that time. Stress ECG Conclusion The baseline EKG shows sinus rhythm with left bundle-branch block. EKGs obtained during and post IC skin shows sinus rhythm with left bundle-branch block. There were no acute ST or T wave changes when compared to baseline. There were no stress-induced arrhythmias. Study Quality Study: Good Artifact: No artifact Study Data At rest, the left ventricular ejection fraction was 41%.. Post stress, the left ventricular ejection was 50%.. TID = 0.95. Perfusion Infusion images show a partially reversible mid to apical anterior wall defect suggesting prior infarct with suma-infarct ischemia. No other significant fixed or reversible defects are identified. Wall Motion There is a septal wall motion abnormality noted consistent with bundle branch block. There is hypokinesis of the mid to distal anterior wall noted. Global LV systolic function appears mildly decreased. Nuclear Conclusion ECG Findings: non-diagnostic Clinical Findings: negative for ischemia Nuclear Findings: positive for ischemia Exercise Capacity: not assessed Left Ventricular Function: abnormal Risk Study: high Myocardial perfusion images suggest possible prior infarct of the distal anterior wall with mild suma-infarct ischemia. Global LV systolic function mildly decreased with wall motion abnormalities as outlined above. This is a high risk study. <Conclusion> [place] [address] CARDIAC NUCLEAR IMAGING REPORT Name: PEPPER PAIZ Room: [address] IN [facility].#: [id number] Admission: 09/28/18 Attend Phys: Franc Thornton, Discharge: Date of : 48 Date of Service: 10/02/181808 Report #: [id number] The baseline EKG shows sinus rhythm with left bundle-branch block. EKGs obtained during and post IC skin shows sinus rhythm with left bundle-branch block. There were no acute ST or T wave changes when compared to baseline. There were no stress-induced arrhythmias. <ELECTRONICALLY SIGNED> By: Steve Monzon MD, FACC 10/02/181808 08 08 Steve Monzon MD, FACC /INF
--- NOTE | 2018-10-02 19:19 | NUR ---
STRESS TEST CAME BACK POSITIVE. HOSPITALIST AND CARDIOLOGY NOTIFIED.
[2018-10-02 19:30] VITALS: BP 124/70
[2018-10-03] VITALS: BP 137/75
--- NOTE | 2018-10-03 01:27 | NUR ---
INITAL ASSESMENT COMPLETED AT 1930. PT PLEASANT AND COOPERATIVE. PT DENIED PAIN OR DISCOMFORT AT THAT TIME. DISCUSSED RESULTS OF PT'S STRESS TEST. NO FURTHER ORDERS AT THIS TIME FOR INTERVENTION. CALL LIGHT IN REACH, PT USING PROPERLY.
[2018-10-03 04:00] VITALS: BP 131/66
[2018-10-03 08:00] VITALS: BP 139/82
[2018-10-03 11:22] VITALS: BP 139/68
--- NOTE | 2018-10-03 12:09 | NUR ---
ASSUMED PT CARE REPORT RECEIVED FROM NURSE. PT IS AOX4 . SR BB ON UTILIZATION REVIEW RN. COMPLAINS OF PAIN LEVEL 5 I NHER BACK. TRAMADOL GIVEN. CARDIOLOGY SIGNED OFF FOR PT TO BE DISCHRGE. DISCHARGE PENDING POST LUNCH. WILL CONTINUE TO MONITOR PT.
--- NOTE | 2018-10-03 13:10 | NUR ---
pt left floor at 1310. discharge instructions given.
== END 2018-10-03 13:15 | disposition home or self-care (01) | DRG 949 ==
LOC: M.ERS 10:04 → M.2W 14:43 → M.TBA-ER 14:43 → M.2W 16:07
PROVIDERS: Nurse Practitioner Family; ADMIT Internal Medicine
DX: Z79.899 Other long term (current) drug therapy (principal); J18.0 Bronchopneumonia, unspecified organism; I50.41 Acute combined systolic (congestive) and diastolic (congestive) heart failure; I16.1 Hypertensive emergency; D68.59 Other primary thrombophilia; I25.110 Atherosclerotic heart disease of native coronary artery with unstable angina pectoris; I11.0 Hypertensive heart disease with heart failure; E78.5 Hyperlipidemia, unspecified; Z96.653 Presence of artificial knee joint, bilateral; G25.81 Restless legs syndrome; E03.9 Hypothyroidism, unspecified; K21.9 Gastro-esophageal reflux disease without esophagitis; G89.29 Other chronic pain; I44.7 Left bundle-branch block, unspecified; I25.5 Ischemic cardiomyopathy; M19.90 Unspecified osteoarthritis, unspecified site; J84.89 Other specified interstitial pulmonary diseases; E87.6 Hypokalemia; G62.9 Polyneuropathy, unspecified; E53.8 Deficiency of other specified B group vitamins; R13.10 Dysphagia, unspecified; I25.2 Old myocardial infarction; Z86.718 Personal history of other venous thrombosis and embolism; Z86.711 Personal history of pulmonary embolism; Z90.49 Acquired absence of other specified parts of digestive tract; Z90.710 Acquired absence of both cervix and uterus; Z88.6 Allergy status to analgesic agent; Z88.0 Allergy status to penicillin; Z82.49 Family history of ischemic heart disease and other diseases of the circulatory system; Z87.891 Personal history of nicotine dependence; Z79.891 Long term (current) use of opiate analgesic

== ENCOUNTER 2018-10-06 17:49 | Emergency (ER) | payer OTHER ==
[~2018-10-06] VITALS: Ht 160 cm; Wt 69.8 kg
[~2018-10-06 17:49] MED LIST changes: +AZITHROMYCIN 2250 MG PO; +B12INJ SUBQ; +CEFUROXIME500 MG PO; +LASIX 40 MG TAB40 M1 PO; +LIPITOR10 MG PO; +LISINOPRIL5 MG PO; +METOPROLOL SUCC25 M1 PO; +NAMENDA 5 MG TAB5 M1 PO; +ULTRAM 50MG TAB50 MG PO; +VITAMIN D5000 UNIT PO; +XARELTO10 MG PO
[2018-10-06] MEDS ORDERED: NORCO 5-325 TA1 EAC1 PO (18:25)
[2018-10-06 19:33] VITALS: BP 110/55
== END 2018-10-06 19:35 | disposition home or self-care (01) ==
LOC: M.ERS 17:49
DX: M25.531 Pain in right wrist (principal); I10 Essential (primary) hypertension; G25.81 Restless legs syndrome; E03.9 Hypothyroidism, unspecified; K21.9 Gastro-esophageal reflux disease without esophagitis; F32.9 Major depressive disorder, single episode, unspecified; I25.10 Atherosclerotic heart disease of native coronary artery without angina pectoris; K31.84 Gastroparesis; M19.90 Unspecified osteoarthritis, unspecified site; Z90.49 Acquired absence of other specified parts of digestive tract; Z90.710 Acquired absence of both cervix and uterus; Z96.653 Presence of artificial knee joint, bilateral; Z86.718 Personal history of other venous thrombosis and embolism; Z86.711 Personal history of pulmonary embolism; Z88.0 Allergy status to penicillin; Z88.6 Allergy status to analgesic agent

== ENCOUNTER → 2018-10-11 | Outpatient (CLI) | payer OTHER ==
[2018-10-11] VITALS (8 sets, daily range): BP systolic 100–154; BP diastolic 48–77
[~2018-10-11] VITALS: Ht 160 cm; Wt 72.6 kg
[~2018-10-11] MED LIST changes: +NORCO 5-325 TA1 EAC1 PO
[2018-10-11 11:28] LABS: HEMATOCRIT 37.9 % (37.0-47.0); HEMOGLOBIN 12.8 gm/dL (12.0-15.0); MCH 29.2 pg (26.0-34.0); MCHC 33.8 g/dL (28.0-37.0); MCV 86.4 fL (80.0-100.0); RBC 4.39 mil/uL (4.20-5.00); RDW-CV 15.8 % (10.5-14.5); WBC 9.3 thou/uL (4.0-11.0)
[2018-10-11 11:37] LABS: ANION GAP 8 mmol/L (7-16); BUN 21 mg/dL (7-18); CALCIUM 9.4 mg/dL (8.5-10.1); CHLORIDE 101 mmol/L (98-107); CO2 29 mmol/L (21-32); GLUCOSE 111 mg/dL (70-99); POTASSIUM 3.9 mmol/L (3.5-5.1); SERUM ASSESSMENT Clear; SODIUM 138 mmol/L (136-145)
[2018-10-11 11:38] LABS: APTT 26.6 Seconds (25.0-31.3); INR 0.9; PROTIME 9.5 Seconds (9.20-11.50)
[2018-10-11 11:41] LABS: CHOLESTEROL 251 mg/dL (<200); HDL CHOLESTEROL 65 mg/dL (>40); LDL CHOLESTEROL 141 mg/dL (<100); TC:HDL 3.9 Ratio (Not establshd); TRIGLYCERIDE 225 mg/dL (<150); VLDL 45 mg/dL (<40)
== END | disposition home or self-care (01) ==
LOC: M.CL 10:53
PROVIDERS: Internal Medicine Cardiovascular Disease
DX: I25.10 Atherosclerotic heart disease of native coronary artery without angina pectoris (principal); M19.90 Unspecified osteoarthritis, unspecified site; E03.9 Hypothyroidism, unspecified; K31.84 Gastroparesis; K21.9 Gastro-esophageal reflux disease without esophagitis; F32.9 Major depressive disorder, single episode, unspecified; G89.29 Other chronic pain; I25.2 Old myocardial infarction; I26.99 Other pulmonary embolism without acute cor pulmonale; Z90.49 Acquired absence of other specified parts of digestive tract; Z98.890 Other specified postprocedural states; Z96.653 Presence of artificial knee joint, bilateral; Z86.718 Personal history of other venous thrombosis and embolism; Z87.891 Personal history of nicotine dependence; Z79.01 Long term (current) use of anticoagulants

== ENCOUNTER 2019-03-21 12:28 | Emergency (ER) | payer MEDICARE ==
[~2019-03-21] VITALS: Ht 160 cm; Wt 76.7 kg
[~2019-03-21 12:28] MED LIST changes: +CIPRO500 M1 PO; +TYLENOL WITH CO1 TA1 PO
[2019-03-21 13:25] LABS: URINE BILIRUBIN NEGATIVE (Negative); URINE BLOOD NEGATIVE (Negative); URINE CLARITY CLEAR; URINE COLOR YELLOW; URINE GLUCOSE-RANDOM NEGATIVE (Negative); URINE KETONES NEGATIVE (Negative); URINE LEUKOCYTES-REFLEX TRACE (Negative); URINE NITRITE-REFLEX NEGATIVE (Negative); URINE PROTEIN NEGATIVE (Negative); URINE UROBILINOGEN 0.2 E.U./dl (0.2-1.0)
[2019-03-21 13:29] LABS: BACTERIA-REFLEX 1-9 Few /HPF (None Seen); CASTS None Seen /LPF (None Seen); CRYSTALS None Seen /LPF (None Seen); MUCUS 0-3 Light strn/LPF (None Seen); SQUAMOUS 0-3 Few /LPF (0-3); URINE RBC 0-2 Rare /HPF (0-2); URINE WBC-REFLEX 6-15 Few /HPF (0-5)
[2019-03-21 13:39] LABS: HEMATOCRIT 35.7 % (37.0-47.0); HEMOGLOBIN 12.5 gm/dL (12.0-15.0); MCH 30.3 pg (26.0-34.0); MCHC 34.9 g/dL (28.0-37.0); MCV 86.8 fL (80.0-100.0); MPV 7.3 fl. (7.2-11.1); NUCLEATED RBCS 0 /100WBC; PLATELET COUNT* 258 thou/uL (150-400); RBC 4.11 mil/uL (4.20-5.00); RDW-CV 14.7 % (10.5-14.5); WBC 5.8 thou/uL (4.0-11.0)
[2019-03-21 13:45] LABS: CALCIUM 8.6 mg/dL (8.5-10.1); CREATININE 1.5 mg/dL (0.6-1.3); POTASSIUM 4.1 mmol/L (3.5-5.1)
[2019-03-21 13:57] LABS: ALBUMIN 3.8 g/dL (3.4-5.0); TOTAL BILIRUBIN 0.3 mg/dL (<0.1-1.0); TOTAL PROTEIN 7.2 g/dL (6.4-8.2)
[2019-03-21 14:17] LABS: ABSOLUTE BASOPHILS 0.1 thou/uL (0.0-0.2); ABSOLUTE EOSINOPHILS 0.9 thou/uL (0.0-0.7); ABSOLUTE LYMPHOCYTES 1.9 thou/uL (0.8-5.3); ABSOLUTE MONOCYTES 0.2 thou/uL (0.0-1.2); ABSOLUTE NEUTROPHILS 2.7 thou/uL (1.6-8.1); METAMYELOCYTES 1 %; PLATELET ESTIMATE ADEQUATE
[2019-03-21] MEDS ORDERED: KEFLEX500 M2 PO (16:49)
[2019-03-21 17:03] VITALS: BP 127/70
--- NOTE | 2019-03-22 12:59 | EKG ---
[place] [address] ELECTROCARDIOGRAM REPORT Name: PEPPER PAIZ Room: [facility]#: [id number] Admission: 03/21/19 Attend Phys: Discharge: 03/21/19 Date of : 48 Report #: [id number] THIS REPORT FOR: //name// [facility] ED Test Date: 2019-03-21 Test Time: 16:39:12 Pat Name: PEPPER PAIZ Department: Room: Gender: F Paper Maker: TEENA : 1950 Requested By: Jonnathan Luke Order Number: [id number] Raymundo MD: Amari Chopra Measurements Intervals [place] Rate: 66 P: 69 VT: 143 QRS: 48 QRSD: 149 T: 87 QT: 492 QTc: 516 Interpretive Statements Sinus rhythm Left bundle branch block Baseline wander in lead(s) V3 Compared to ECG 10/11/2018 13:13:15 No significant changes Electronically Signed On 03-22-2019 12:58:22 MEDICAL BILLING ASSISTANT by Amari Chopra [email or web address] <ELECTRONICALLY SIGNED> By: Amari Chopra MD, [facility] 03/22/19 1258 [id number] Amari Chopra MD, FACC /EPI
== END 2019-03-21 17:04 | disposition home or self-care (01) ==
LOC: M.ERS 12:28
PROVIDERS: Emergency Medicine
DX: N39.0 Urinary tract infection, site not specified (principal); I11.0 Hypertensive heart disease with heart failure; I50.9 Heart failure, unspecified; F32.9 Major depressive disorder, single episode, unspecified; E03.9 Hypothyroidism, unspecified; K21.9 Gastro-esophageal reflux disease without esophagitis; G25.81 Restless legs syndrome; I25.2 Old myocardial infarction; Z90.49 Acquired absence of other specified parts of digestive tract; Z90.710 Acquired absence of both cervix and uterus; Z96.653 Presence of artificial knee joint, bilateral; Z88.5 Allergy status to narcotic agent; Z88.0 Allergy status to penicillin; Z87.891 Personal history of nicotine dependence